=== PATIENT | female | born 1980 | race Hispanic/Latino ===

== ENCOUNTER 2020-04-17 17:27 | Emergency (ER) | payer OTHER, SELFPAY ==
--- NOTE | ~2020-04-17 | CT_ITS ---
EXAMINATION: CT brain wo con DATE: 04/17/2020 22:20 INDICATION: Headache. TECHNIQUE: Computed tomography (CT) of the head was performed without intravenous contrast. The mA wa s adjusted according to patient size. Iterative reconstruction technique was employed. The dose-lengt h product was 605.33 mGy-cm. COMPARISON: Head CT 06/16/2018 FINDINGS: There is no intracranial hemorrhage, acute infarction, or abnormal intracranial mass lesion . The ventricles are normal in size. The orbits are normal. There is mild mucosal thickening in the e thmoid sinuses. The mastoid air cells are normal. IMPRESSION: 1. Normal brain. Reviewed, dictated and finalized at location A. IMPRESSION: 1. Normal brain.
[2020-04-17 18:32] VITALS: BP 131/84; PULSE 64; RESP 20; TEMP 36.4; O2SAT 99
--- NOTE | 2020-04-17 22:27 | ED.HA ---
HPI - Headache General Chief Complaint: Headache Stated Complaint: headache Time Seen by Provider: 04/17/20 21:50 Source: patient and family Mode of arrival: ambulatory Limitations: language barrier History of Present Illness HPI Narrative: 40-year-old female She prefers her family member to interpret She complains of a week history of a headache Feels like a tightness on the top of her head She does not have nausea or vomiting, she does not have visual symptoms, she does not have a fever or neck pain, she does not have any other neurologic symptoms, and she does not have any sinus issues She is tried taking Tylenol, and it works to some extent She takes propranolol for hypertension and is well controlled MD elicited complaint: headache Onset description: gradually Location: diffuse Related Data Home Medications Medication Instructions Recorded Confirmed hydrochlorothiazide 04/17/20 propranolol 04/17/20 Allergies Allergy/AdvReac Type Severity Reaction Status Date / Time No Known Allergies Allergy Verified 04/17/20 18:38 Review of Systems Constitutional: Constitutional: Denies chills and Denies fever(s) Eyes: Eyes: Denies change in vision and Denies photophobia Gastrointestinal: Gastrointestinal: Denies nausea and Denies vomiting Neurologic: Denies vertigo, Denies dizziness, Denies syncope, Reports headache(s) and Denies focal weakness Endocrine: Comments: No weight change PMFSH Social History Social History Gender identity (if verbalized by the patient): Female Sexual Orientation (if Verbalized by the Patient): Straight or Heterosexual Exam Const: General: healthy appearing, no acute distress and well developed Nutritional Appearance: well nourished Orientation/consciousness: patient oriented x3 (alert) and Other orientation findings (Alert) Limitations: no limitations HENMT: Head: normocephalic and atraumatic Ears: external ears normal General nose exam: No nasal discharge present Face and sinus: sinuses nontender and face symmetric Mouth: Yes lip normal, Yes tongue normal and Yes moist mucous membranes Throat: posterior oropharynx normal and other (No exudate, no erythema) Eyes: Conjunctivae: conjunctivae normal Sclera: sclerae normal EOM: EOMs intact bilaterally Other: Sharp discs Neck: Neck: full ROM, no meningeal signs and supple Thyroid: thyroid normal Resp: Effort & Inspection: normal respiratory effort Auscultation: clear to auscultation bilaterally and other (breath sounds equal) Cardio: Rate: regular rate Rhythm: regular rhythm Heart sounds: no gallops and no murmurs GI: GI Palp: No abdominal tenderness Auscultation: other (bowel sounds present) Back/Spine/Pelvis: Thoracic/Lumbar Spine: thoracic and lumbar spine normal to inspection Skin: General skin exam: normal color and no rashes or lesions noted Rashes: no rashes Neuro: General: patient oriented x3 (alert) and no focal motor deficits Cranial nerves: Yes facial symmetry Speech: normal speech Motor exam (neuro): Motor abnormalities not present Extrem: General: normal to inspection and full ROM Psych: Affect: normal affect Course Vital Signs Vital signs: Vital Signs Temperature 36.4 C L 04/17/20 18:32 Pulse Rate 64 04/17/20 18:32 Respiratory Rate 20 04/17/20 18:32 Blood Pressure 131/84 04/17/20 18:32 Pulse Oximetry 99 04/17/20 18:32 Temperature 36.4 C L 04/17/20 18:32 Pulse Rate 64 04/17/20 18:32 Respiratory Rate 20 04/17/20 18:32 Blood Pressure 131/84 04/17/20 18:32 Pulse Oximetry 99 04/17/20 18:32 MDM - Headache Imaging Data Radiologist's impression: ITS Impressions Head CT 04/17/20 22:22 IMPRESSION: 1. Normal brain. Discharge Plan Discharge Clinical Impression: Headache Patient Disposition: Home, Self-Care Condition: Stable Instructions: Antibiotic Form, Acute Headache (ED) Prescriptions: No Action pro
[2020-04-17 23:02] VITALS: BP 129/72; PULSE 50; RESP 16; O2SAT 96
== END 2020-04-17 22:47 | disposition home or self-care (01) ==
PROVIDERS: Emergency Provider Emergency Medicine; PCP Registered Nurse
DX: R51 Headache (principal)
CPT/HCPCS: 70450; 99284

== ENCOUNTER 2022-07-06 17:50 | Emergency (ER) | payer OTHER, SELFPAY ==
--- NOTE | ~2022-07-06 | CT_ITS ---
EXAMINATION: CT abdomen pelvis wo con DATE: 07/06/2022 21:36 INDICATION: R flank pain, concern for kidney stone TECHNIQUE: Computed tomography (CT) of the abdomen and pelvis was performed without intravenous contr ast. Automated exposure control and iterative reconstruction technique were employed. The dose-length product was 833.13 mGy-cm. COMPARISON: None. FINDINGS: Lower thorax: Unremarkable Liver: Normal. Biliary/Gallbladder: Gallbladder is normal. No bile duct dilation. Pancreas: No mass or duct dilation. Fatty infiltration. Spleen: Normal. Adrenals:No mass. Kidneys: 3 mm left inferior pole nonobstructing calculus. No suspicious mass or hydronephrosis GI tract: No small or large bowel dilation. Normal appendix. Diverticulosis without diverticulitis. Mesentery/Peritoneum: No ascites, mass, or free air. Retroperitoneum: No mass. Pelvis: Somewhat tubular cystic structure in the right adnexa. Normal uterus. Normal left ovary.. Soft Tissues: Soft tissues and body wall unremarkable. Bones: No acute osseous finding. IMPRESSION: Possible right hydrosalpinx, consider pelvic ultrasound for further evaluation. Otherwise, no acute a bdominal pelvic process detected. Specifically there is no evidence of obstructive uropathy. Reviewed, dictated and finalized at location K. [employer] IMPRESSION: Possible right hydrosalpinx, consider pelvic ultrasound for further evaluation. Otherwise, no acute abdominal pelvic process detected. Specifically there is n o evidence of obstructive uropathy.
--- NOTE | ~2022-07-06 | US_ITS ---
EXAMINATION: US pelvic complete w TV DATE: 07/06/2022 23:40 INDICATION: Right-sided hydrosalpinx TECHNIQUE: Multiple transabdominal and endovaginal sonographic images of the pelvis were obtained. COMPARISON: CT abdomen pelvis dated 07/06/2022 FINDINGS: The uterus measures 8.2 x 6.4 x 6.6 cm. The endometrial complex measures 14 mm in thickness. There a re few small anechoic nabothian cysts at the cervix, the largest measuring up to 4 mm diameter. The r ight ovary measures 3.7 x 1.8 x 2.3 cm. There is vascular flow on the right ovary on color Doppler wh ich appears to surround to a 1.8 cm centrally hypoechoic likely likely corpus luteum cyst. The left o vary is not visualized on ultrasound images but appears normal on the prior CT. Somewhat serpiginous anechoic tubular structure at the right adnexa measuring up to 1.7 cm diameter which would be consist ent with the provided history of a hydrosalpinx. There is no free fluid in the pelvis. IMPRESSION: 1. Right hydrosalpinx with dilated tube measuring up to 1.7 cm in maximal diameter. 2. 1.8 cm likely corpus luteum cyst in the right ovary. Reviewed, dictated and finalized at location A. HOISTER IMPRESSION: 1. Right hydrosalpinx with dilated tube measuring up to 1.[address] 2. 1.8 cm likely corpus luteum cyst in the right ovary.
[2022-07-06 18:18] VITALS: BP 130/64; PULSE 57; RESP 20; TEMP 37; O2SAT 99
[2022-07-06 18:38] LABS: Appearance Urine Slightly Cloudy (Clear); Bilirubin Urine Negative (Negative); Blood Urine Negative (Negative); Color Urine Yellow (Yellow); Glucose Urine UA Negative (Negative); Ketones Urine Negative (Negative); Leukocyte Esterase Ur Negative LEU/UL (Negative); Nitrate Urine Negative (Negative); Protein Urine Negative (Negative); Specific Grav Ur 1.025 (1.001-1.035)
[2022-07-06 19:06] LABS: Bacteria Urine Trace /hpf; Mucus Urine Rare /lpf; RBC Urine 0-2 /hpf (0-2); Squamous Epithelial Cell Urine Few /hpf (Few); WBC Urine 0-3 /hpf
[2022-07-06 19:14] LABS: Add Urine Microscopic? YES
--- NOTE | 2022-07-06 21:26 | ED.BACK ---
HPI - Back Pain/Injury General Chief Complaint: Back Pain/Injury Stated Complaint: right flank pain x 1 day Time Seen by Provider: 07/06/22 21:10 History of Present Illness HPI Narrative: Patient is a 42-year-old female here for evaluation of right flank pain over the past day. Patient states it is intermittent in nature, sharp and stabbing, and wraps around to the front of her groin. States the pain is severe, unrelieved by Tylenol at home. She denies any dysuria, urgency or frequency, fevers or chills, hematuria, history of kidney stones. No vaginal discharge. Related Data Home Medications Medication Instructions Recorded Confirmed hydrochlorothiazide 12.5 mg capsule 04/17/20 propranolol 40 mg tablet 04/17/20 Allergies Allergy/AdvReac Type Severity Reaction Status Date / Time No Known Allergies Allergy Verified 07/06/22 17:51 Review of Systems Review of Systems: Gen: Denies fevers or chills Eyes: Denies eye pain or visual change ENT: Denies congestion Respiratory: Denies shortness of breath or cough CV: Denies chest pain or palpitations GI: Denies abdominal pain nausea, emesis or diarrhea : denies burning, urgency, frequency or hematuria Musculoskeletal: Reports right flank pain Neuro: Denies numbness, tingling, weakness or focal weakness Skin: Denies rash Except as documented, all other systems reviewed and negative PMFSH Social History Social History (System 01/04/22 @ 14:20 by Nahun Francisco) Gender identity (if verbalized by the patient): Female Sexual Orientation (if Verbalized by the Patient): Straight or Heterosexual Exam Narrative: APPEARANCE: Well appearing, no pain in distress, well-nourished. Head: Normocephalic and atraumatic. EYES: PERRLA/EOMI, conjunctivae clear NOSE: No nasal drainage EARS: External ear normal in appearance THROAT: Oropharynx is clear. Mucous membranes are moist. NECK: Supple. No adenopathy, no masses. RESPIRATORY: Airway patent, respirations nonlabored. Clear to auscultation bilaterally, no rales, rhonchi, wheezing. CARDIOVASCULAR: Regular rate and rhythm without murmurs, rubs, or gallops. ABDOMINAL: Normoactive bowel sounds. Soft, nontender, nondistended. No rebound tenderness or guarding. MUSCULOSKELETAL: No CVA tenderness. extremities are warm and well-perfused. Moves all extremities well. No edema. NEURO: Normal speech. No focal neurologic deficits. SKIN: Skin is warm and dry. No rashes. PSYCHIATRIC: Normal affect/mood. Course Vital Signs Vital signs: Vital Signs Temperature 98.6 F 07/06/22 18:18 Pulse Rate 57 L 07/06/22 18:18 Respiratory Rate 20 07/06/22 18:18 Blood Pressure 130/64 07/06/22 18:18 Pulse Oximetry 99 07/06/22 18:18 Oxygen Delivery Room Air 07/06/22 18:18 Temperature 98.6 F 07/06/22 18:18 Pulse Rate 88 07/07/22 01:12 Respiratory Rate 18 07/07/22 01:12 Blood Pressure 130/64 07/06/22 18:18 Pulse Oximetry 98 07/07/22 01:12 Oxygen Delivery Room Air 07/06/22 18:18 MDM - Back Pain/Injury MDM Narrative Medical decision making narrative: 42 yo F here for evaluation of right flank pain over the past day. Patient is nontoxic-appearing and has normal vital signs. She has no CVA tenderness. Work-up in the ED shows no kidney stone on the CT but does show right hydrosalpinx, followed by a pelvic ultrasound that reveals a thickened endometrial complex and continued findings of a right hydrosalpinx. Her basic labs are unremarkable. She was given pain meds in the ED with improvement of her symptoms. Her UA does not show signs of infection. She will be discharged home to follow-up with [employer] for further evaluation of her hydrosalpinx and thickened endometrial complex; hydrosalpinx may explain pain. Denies vaginal discharge/ concern for STI; defer pelvic exam. She was given reasons return to the ED and she voiced understanding. Lab Data 07/06/22 21:56 07/06/22 21:56 Labs: La
[2022-07-06] MEDS: MORPHINE SULFATE (*CRX) 4 MG/ML INJ IV PUSH (21:53)
[2022-07-06 22:05] LABS: Basophils Absolute Auto 0.1 K/mm3 (0.0-0.1); Basophils Percent Auto 0.6 % (0.2-1.2); Eosinophils Absolute Auto 0.2 K/mm3 (0-0.3); Eosinophils Percent Auto 2.1 % (0-4.4); Hematocrit 36.4 % (37.0-47.0); Hemoglobin 12.4 g/dL (12.0-15.0); Immature Granulocyte Absolute 0.05 K/mm3 (0.00-0.031); Immature Granulocyte Percent A 0.5 % (0-0.5); Lymphocytes Absolute Auto 2.42 K/mm3 (0.9-3.2); Lymphocytes Percent Auto 25.1 % (18.3-44.2); Mean Corpuscular HGB Conc 34.1 g/dl (32-36); Mean Corpuscular Hemoglobin 30.7 pg (26-34); Mean Corpuscular Volume 90.1 fl (80-100); Monocytes Absolute Auto 1.1 K/mm3 (0.1-0.6); Monocytes Percent Auto 11.5 % (2.6-8.5); Neutrophils Absolute Auto 5.8 K/mm3 (1.3-6.7); Neutrophils Percent Auto 60.2 % (45.5-73.1); Platelet Count Result 285 k/mm3 (150-375); Red Blood Count 4.04 M/mm3 (4.2-5.4); Red Cell Distribution Width 13.1 % (11.5-14.5); White Blood Count 9.7 K/mm3 (4.5-10.0)
[2022-07-06 22:30] LABS: Alanine Aminotransferase 60 U/L (6-35); Albumin Level 4.3 g/dL (3.5-5.1); Alkaline Phosphatase 74 U/L (38-126); Anion Gap 5 mmol/L (8-16); Aspartate Amino Transferase 44 U/L (14-36); Bilirubin,Total 0.4 mg/dL (0.2-1.3); Blood Urea Nitrogen 13 mg/dL (7-17); Calcium 8.9 mg/dL (8.4-10.2); Carbon Dioxide 29 mmol/L (22-30); Chloride 104 mmol/L (98-107); Estimated CRCL calculation 118 ml/min; Estimated Glomerular Filt Rate > 60; Glucose 95 mg/dL (65-110); Potassium 3.6 mmol/L (3.4-5.0); Sodium 138 mmol/L (137-145)
[2022-07-07 01:12] VITALS: PULSE 88; RESP 18; O2SAT 98
== END 2022-07-07 01:16 | disposition home or self-care (01) ==
PROVIDERS: Emergency Medicine; Physician Assistant; Emergency Provider Emergency Medicine; PCP Registered Nurse
DX: N70.11 Chronic salpingitis (principal); N83.201 Unspecified ovarian cyst, right side
CPT/HCPCS: 36415; 74176; 76830; 76856; 80053; 81001; 81025; 85025; 96374; 99284; J2270

== ENCOUNTER 2023-12-02 16:49 | Emergency (ER) | payer OTHER, SELFPAY ==
[2023-12-02 17:02] VITALS: BP 141/63; PULSE 57; RESP 16; TEMP 36.4; O2SAT 99
[2023-12-02 17:24] VITALS: BP 134/79; PULSE 53; RESP 16; O2SAT 98
--- NOTE | 2023-12-02 17:37 | ED.GENADULT ---
[facility] General Adult General Chief complaint: Headache Stated complaint: headache x3 weeks Time Seen by Provider: 12/02/23 17:13 Source: patient Mode of arrival: ambulatory Limitations: no limitations History of Present Illness [facility] narrative: This is a 43-year-old female with PMH migraine, HTN who presents to the ED with chief complaint headache for the past 2-3 weeks. Patient reports the pain is often on and has been taking Advil on occasion for the pain. Patient reports intermittent dizziness. States pain is not getting worse but not getting necessarily better either. No neck pain or neck stiffness. Denies fevers, chills, vomiting, sudden onset, worse headache of life, positional factors or any specific precipitating factor. Denies numbness, weakness. Related Data Home Medications Medication Instructions Recorded Confirmed hydrochlorothiazide 12.5 mg capsule 04/17/20 propranolol 40 mg tablet 04/17/20 Allergies Allergy/AdvReac Type Severity Reaction Status Date / Time No Known Allergies Allergy Verified 12/02/23 16:54 Review of Systems Review of Systems: All systems as dictated in [facility] Social History Social History (System 01/04/22 @ 14:20 by Nahun Francisco) Gender identity (if verbalized by the patient): Female Sexual Orientation (if Verbalized by the Patient): Straight or Heterosexual Exam Narrative: GENERAL: Well-appearing, well-nourished, and in no acute distress. HEAD: Normocephalic, atraumatic. EYES: PERRLA and EOMI. ENT: Nares clear, no rhinorrhea or epistaxis. Mucous membranes moist. Oropharynx without tonsillar hypertrophy exudate or other lesions. NECK: Supple. No adenopathy or masses. No meningeal signs CHEST: No respiratory distress. Clear to auscultation. No wheezes rales or rhonchi HEART: Regular rate and rhythm. No murmur heard. Normal peripheral pulses. ABDOMEN: Soft, nontender, nondistended, normal active bowel sounds. MSK: Normal range of motion. No edema. SKIN: Warm, dry, no rash. NEURO: Alert and oriented x4. No focal deficits. PSYCH: Normal mood and affect. Course Reevaluation(s) Reevaluation #1: Patient is feeling much her regular cocktail. She feels ready to go home. Date: 12/02/23 Time: 19:07 Vital Signs Vital signs: Vital Signs Temperature 97.5 F L 12/02/23 17:02 Pulse Rate 57 L 12/02/23 17:02 Respiratory Rate 16 12/02/23 17:02 Blood Pressure 141/63 H 12/02/23 17:02 Pulse Oximetry 99 12/02/23 17:02 Temperature 97.5 F L 12/02/23 17:02 Pulse Rate 61 12/02/23 18:52 Respiratory Rate 18 12/02/23 18:52 Blood Pressure 130/63 12/02/23 18:52 Pulse Oximetry 99 12/02/23 18:52 Medical Decision Making MDM Narrative Medical decision making narrative: This is a 43-year-old female who presents to the ED with chief complaint of 2 weeks of intermittent headaches. Vitals are normal. Exam is benign. No red flag signs for headache today. No neurologic deficits. No meningeal signs. Encouraged her to follow up with PCP regarding migraines if she continues to have issues with this. She affirms that she has close follow-up with her PCP Pt will be discharged in stable condition. Return precautions given and supportive measures discussed. Pt is understanding and agreeable with plan for discharge and follow-up with PCP. Vital Signs Vital Signs: Vital Signs Temperature 97.5 F L 12/02/23 17:02 Pulse Rate 57 L 12/02/23 17:02 Respiratory Rate 16 12/02/23 17:02 Blood Pressure 141/63 H 12/02/23 17:02 Pulse Oximetry 99 12/02/23 17:02 Temperature 97.5 F L 12/02/23 17:02 Pulse Rate 61 12/02/23 18:52 Respiratory Rate 18 12/02/23 18:52 Blood Pressure 130/63 12/02/23 18:52 Pulse Oximetry 99 12/02/23 18:52 Discharge Plan Discharge Clinical Impression: Migraine Patient Disposition: Home, Self-Care Condition: Stable Instructions: Antibiotic Form, Migraine Headache (ED) Addition
[2023-12-02] MEDS: SODIUM CHLORIDE 0.9% IV 1,000 ML 999 ML IV CONT (17:48)
[2023-12-02] MEDS: PROCHLORPERAZINE EDISYLATE 10 MG/2 ML VIAL IV PUSH (17:49)
[2023-12-02] MEDS: diphenhydrAMINE HCl INJ 50 MG/ML VIAL 25 MG IV PUSH (17:49)
[2023-12-02] MEDS: KETOROLAC 15 MG/ML VIAL (*BKC) IV PUSH (17:49)
[2023-12-02 18:52] VITALS: BP 130/63; PULSE 61; RESP 18; O2SAT 99
[2023-12-02 19:18] VITALS: BP 123/64; PULSE 61; RESP 16; O2SAT 94
== END 2023-12-02 19:20 | disposition home or self-care (01) ==
PROVIDERS: Emergency Provider Physician Assistant; PCP Registered Nurse
DX: G43.909 Migraine, unspecified, not intractable, without status migrainosus (principal); I10 Essential (primary) hypertension
CPT/HCPCS: 96361; 96374; 96375; 99284; J0780; J1200; J1885; J7030

== ENCOUNTER 2024-03-27 16:36 | Emergency (ER) | payer OTHER, SELFPAY ==
[2024-03-27 16:39] VITALS: BP 156/71; PULSE 66; RESP 18; O2SAT 99
--- NOTE | 2024-03-27 16:51 | ECG_ITS ---
Test Date: 2024-03-27 16:45:04 Measurements Intervals [place] Rate: 63 P: 24 AK: 136 QRS: 31 QRSD: 92 T: 3 QT: 402 QTc: 412 Interpretive Statements SINUS RHYTHM NONSPECIFIC T-WAVE ABNORMALITY BORDERLINE ECG No previous ECG available for comparison Electronically Signed On 03-28-2024 13:13:14 CDT by Rome Braga M.D.
[2024-03-27 17:01] VITALS: TEMP 36.4
--- NOTE | 2024-03-27 17:06 | ED.DIZZY ---
HPI - Dizziness General Chief Complaint: Dizziness Stated Complaint: HEAD PRESSURE Time Seen by Provider: 03/27/24 16:45 History of Present Illness HPI Narrative: [age] old female presenting to the emergency department for evaluation for headache and hypertension. Patient states she does have history of migraines and has had a persistent headache for greater than 1 week. Patient states her typical migraine is pain on her head in this migraine feels like a pressure. Otherwise she states this is similar to her previous headaches. Patient states this headache has been daily mm going on for a week. Patient denies any associated numbness or weakness falls or injuries. Patient states that her blood pressures have been running high but states it is states she does not typically check her blood pressures Related Data Home Medications Medication Instructions Recorded Confirmed hydrochlorothiazide 12.5 mg capsule 04/17/20 propranolol 40 mg tablet 04/17/20 Allergies Allergy/AdvReac Type Severity Reaction Status Date / Time No Known Allergies Allergy Verified 12/02/23 16:54 Review of Systems Review of Systems: All systems reviewed & are unremarkable except as noted in HPI and below PMFSH Social History Social History (System 01/04/22 @ 14:20 by Nahun Francisco) Gender identity (if verbalized by the patient): Female Sexual Orientation (if Verbalized by the Patient): Straight or Heterosexual Exam Narrative: APPEARANCE: Well appearing, no pain, no distress, well-nourished. HEAD: normocephalic, atraumatic. EYES: PERRLA/EOMI, conjunctivae clear. NOSE: Normal no drainage EARS:TMS clear with good light reflex. THROAT: Pharynx clear, no exudate. NECK: Supple. No adenopathy, no masses. RESPIRATORY: Airway patent, respirations nonlabored. Clear to auscultation bilaterally, no rales, rhonchi, wheezing. CARDIOVASCULAR: Regular rate and rhythm without murmurs rubs or gallops. ABDOMINAL: Soft, nontender, nondistended, normal bowel sounds MUSCULOSKELETAL: Moves all extremities. Strength/ROM intact, No edema, No calf tenderness. NEURO: Alert. Cranial nerves II through XII intact. Good gait. Good coordination SKIN: Warm, dry. Normal Color Course Course Emergency Course: Patient reports her headache is resolved and patient was discharged home to have close outpatient follow-up. Vital Signs Vital signs: Vital Signs Pulse Rate 66 03/27/24 16:39 Respiratory Rate 18 03/27/24 16:39 Blood Pressure 156/71 H 03/27/24 16:39 Pulse Oximetry 99 03/27/24 16:39 Oxygen Delivery Room Air 03/27/24 16:39 Temperature 98.5 F 03/27/24 18:43 Pulse Rate 67 03/27/24 18:34 Respiratory Rate 20 03/27/24 18:34 Blood Pressure 125/71 03/27/24 18:34 Pulse Oximetry 97 03/27/24 18:34 Oxygen Delivery Room Air 03/27/24 16:39 MDM - Dizziness MDM Narrative Medical decision making narrative: [age] old female presented emergency department for evaluation for headache and high blood pressure. Patient was only treated for migraine and patient's blood pressure significantly improved. Patient states that her headache is resolved. Patient was encouraged of close follow-up with her primary care physician. Differential Diagnosis Differential diagnosis: Likely benign paroxysmal positional vertigo, vertebral basilar insufficiency, cerebrovascular accident, transient cerebral ischemia and other Lab Data Attestation: I reviewed the patient's lab results. 03/27/24 16:56 03/27/24 16:56 Labs: Lab Results 03/27/24 Range/Units 16:56 WBC 11.2 H (4.5-10.0) K/mm3 RBC 4.15 L (4.2-5.4) M/mm3 Hgb 12.1 (12.0-15.0) g/dL Hct 35.0 L (37.0-47.0) % MCV 84.3 (80-100) fl MCH 29.2 (26-34) pg MCHC 34.6 (32-36) g/dl RDW 13.2 (11.5-14.5) % Plt Count 343 (150-375) k/mm3 MPV 10.2 (7.4-10.4) fl Immature Gran % (Auto) 0.4 (0-0.5) % Neut % (Auto) 68.3 (45.5-73.
[2024-03-27 17:08] LABS: Basophils Absolute Auto 0.1 K/mm3 (0.0-0.1); Basophils Percent Auto 0.8 % (0.2-1.2); Eosinophils Absolute Auto 0.2 K/mm3 (0-0.3); Eosinophils Percent Auto 1.8 % (0-4.4); Hemoglobin 12.1 g/dL (12.0-15.0); Immature Granulocyte Absolute 0.04 K/mm3 (0.00-0.031); Immature Granulocyte Percent A 0.4 % (0-0.5); Lymphocytes Absolute Auto 2.55 K/mm3 (0.9-3.2); Lymphocytes Percent Auto 22.8 % (18.3-44.2); Mean Corpuscular HGB Conc 34.6 g/dl (32-36); Mean Corpuscular Hemoglobin 29.2 pg (26-34); Mean Corpuscular Volume 84.3 fl (80-100); Mean Platelet Volume 10.2 fl (7.4-10.4); Monocytes Absolute Auto 0.7 K/mm3 (0.1-0.6); Monocytes Percent Auto 5.9 % (2.6-8.5); Neutrophils Absolute Auto 7.7 K/mm3 (1.3-6.7); Neutrophils Percent Auto 68.3 % (45.5-73.1); Platelet Count Result 343 k/mm3 (150-375); Red Blood Count 4.15 M/mm3 (4.2-5.4); Red Cell Distribution Width 13.2 % (11.5-14.5); White Blood Count 11.2 K/mm3 (4.5-10.0)
[2024-03-27 17:20] LABS: Alanine Aminotransferase 55 U/L (6-35); Albumin Level 4.2 g/dL (3.5-5.1); Alkaline Phosphatase 114 U/L (38-126); Anion Gap 9 mmol/L (4-12); Aspartate Amino Transferase 63 U/L (14-36); Bilirubin,Total 0.3 mg/dL (0.2-1.3); Blood Urea Nitrogen 15 mg/dL (7-17); Calcium 8.6 mg/dL (8.4-10.2); Carbon Dioxide 30 mmol/L (22-30); Chloride 97 mmol/L (98-107); Estimated Glomerular Filt Rate > 60; Glucose 130 mg/dL (65-110); Potassium 3.7 mmol/L (3.4-5.0); Sodium 136 mmol/L (137-145)
[2024-03-27 17:21] VITALS: BP 130/77; PULSE 67; RESP 19; O2SAT 97
[2024-03-27] MEDS: SODIUM CHLORIDE 0.9% IV 1,000 ML 999 ML IV CONT (17:25)
--- NOTE | 2024-03-27 17:25 | PC.NURSE ---
Pt blood pressure reading 130/77. made aware. Dr. Domenic MATHEWS to d/c medication administration for hydralazine.
[2024-03-27] MEDS: KETOROLAC 15 MG/ML VIAL (*BKC) IV PUSH (17:26)
[2024-03-27] MEDS: diphenhydrAMINE HCl INJ 50 MG/ML VIAL 25 MG IV PUSH (17:26)
[2024-03-27] MEDS: PROCHLORPERAZINE EDISYLATE 10 MG/2 ML VIAL IV PUSH (17:26)
[2024-03-27 18:02] VITALS: BP 126/71; PULSE 74; RESP 19; O2SAT 93
[2024-03-27 18:34] VITALS: BP 125/71; PULSE 67; RESP 20; O2SAT 97
[2024-03-27 18:43] VITALS: TEMP 36.9
== END 2024-03-27 18:44 | disposition home or self-care (01) ==
PROVIDERS: Emergency Provider Emergency Medicine; PCP Registered Nurse
DX: G43.909 Migraine, unspecified, not intractable, without status migrainosus (principal); R94.31 Abnormal electrocardiogram [ECG] [EKG]
CPT/HCPCS: 36415; 80053; 85025; 93005; 96361; 96374; 96375; 99284; J0780; J1200; J1885; J7030

== ENCOUNTER 2025-03-06 09:20 | Emergency (ER) | payer OTHER, SELFPAY ==
--- NOTE | ~2025-03-06 | CT_ITS ---
EXAMINATION: CT brain wo con DATE: 03/06/2025 11:51 INDICATION: Headache. Syncope. TECHNIQUE: Computed tomography (CT) of the head was performed without intravenous contrast. Sagittal and coronal reconstructions were performed. The mA was adjusted according to patient size. Iterative reconstruction technique was employed. The dose-length product was 605.33 mGy-cm. COMPARISON: head CT dated 04/17/20 FINDINGS: Moderate-sized midline parietal scalp hematoma posterior to the vertex. No fracture. No acute intracr anial hemorrhage, acute infarction or abnormal extra axial fluid collection. Ventricles are normal an d symmetric. No mass/mass effect. Mild mucosal thickening the ethmoid sinuses. The orbits and mastoid air cells are normal. IMPRESSION: 1. Posterior scalp hematoma. No fracture or acute intracranial process. Reviewed, dictated and finalized at location A.
--- NOTE | ~2025-03-06 | XR_ITS ---
EXAMINATION: XR chest 2V 03/06/2025 10:40 INDICATION: Syncope PROCEDURE: 2 view chest COMPARISON: No prior studies for comparison. FINDINGS: The lungs are clear. The cardiomediastinal silhouette is within normal limits. There are no pleural effusions. There is no pneumothorax suspected. IMPRESSION: 1: NO ACUTE CARDIOPULMONARY DISEASE. Reviewed, dictated and finalized at location A.
[2025-03-06 09:25] VITALS: BP 138/92; PULSE 52; RESP 19; TEMP 36.6; O2SAT 98
--- NOTE | 2025-03-06 09:33 | ECG_ITS ---
Test Date: 2025-03-06 09:30:38 Measurements Intervals [place] Rate: 53 P: 23 ME: 135 QRS: 19 QRSD: 90 T: 13 QT: 451 QTc: 425 Interpretive Statements SINUS BRADYCARDIA BORDERLINE ECG Compared to ECG 03/27/2024 16:45:04 HEART RATE HAS DECREASED Electronically Signed On 03-06-2025 10:07:03 CDT by Bill Puga D.O.
[2025-03-06 09:48] LABS: Hematocrit 35.3 % (37.0-47.0); Hemoglobin 11.4 g/dL (12.0-15.0); Immature Granulocyte Percent A 0.8 % (0-0.5); Lymphocytes Absolute Auto 2.26 K/mm3 (0.9-3.2); Mean Corpuscular HGB Conc 32.3 g/dl (32-36); Mean Corpuscular Hemoglobin 27.0 pg (26-34); Mean Corpuscular Volume 83.6 fl (80-100); Nucleated Red Blood Cells Absolute Auto 0.000 K/mm3 (0.0-0.012); Nucleated Red Blood Cells Perc 0.0 % (0.0-0.2); Platelet Count Result 372 k/mm3 (150-375); Red Blood Count 4.22 M/mm3 (4.2-5.4); White Blood Count 10.6 K/mm3 (4.5-10.0)
[2025-03-06 10:13] LABS: Alanine Aminotransferase 23 U/L (6-35); Albumin Level 4.1 g/dL (3.5-5.1); Alkaline Phosphatase 75 U/L (38-126); Anion Gap 7 mmol/L (4-12); Aspartate Amino Transferase 38 U/L (14-36); Bilirubin,Total 0.5 mg/dL (0.2-1.3); Blood Urea Nitrogen 14 mg/dL (7-17); Calcium 9.0 mg/dL (8.4-10.2); Carbon Dioxide 25 mmol/L (22-30); Chloride 100 mmol/L (98-107); Estimated CRCL calculation 102 ml/min; Estimated Glomerular Filt Rate > 60; Glucose 130 mg/dL (65-110); Potassium 3.9 mmol/L (3.4-5.0); Sodium 132 mmol/L (137-145); Total Protein 7.7 g/dL (6.3-8.2)
--- OUTSIDE RECORDS SUMMARY | 2025-03-06 10:32 | XMS_ITS | Clinical Summary ---
Author Organization [facility] Care Team Providers Care Inventory Auditor Name Role Phone Unavailable Primary Care Provider Unavailabl e Social History Tobacco Use Types Packs/Day Years Used Date Smoking Tobacco: Never Assessed Comments Unknown Sex and Gender Information Value Date Recorded Sex Assigned at Not on file Legal Sex Female 1:11 PM CDT Gender Identity Not on file Sexual Orientation Not on file Plan of Treatment Health Maintenance Due Date Last Done Comments Hepatitis C Virus (HCV) Screening 1979 Hepatitis B Immunization (1 of 3 - 19+ 3-dose series) 1998 Pap Smear 2000 Human Papillomavirus (HPV) Immunization (1 - 3-dose SCDM series) 2006 Cervical Cancer Screening (CCS) 2009 HPV/Cotest 2009 SARS-COV-2 Immunization (2023- season) 2024 11/06/2020, 10/10/2020 Cologuard 2024 Colonoscopy 2024 Colorectal Cancer Screening 2024 Immunochemical Fecal Occult Blood 2024 Influenza Immunization (#1) 03/31/202505/01, 05/10/2019, 04/26/2017, Additional history exists Respiratory Syncytial Virus (RSV) Immunization (Adult) (1 - 1-dose 75+ series) 2054 DTaP/Tdap/Td Immunization Discontinued 01/05/2011 TdaP Immunization Completed 01/05/2011 Meningococcal Immunization (ACWY) Aged Out No longer eligible based on patient's age to complete this topic Pneumococcal Immunization Combined Aged Out No longer eligible based on patient's age to complete this topic Rotavirus Immunization Aged Out No lo nger eligible based on patient's age to complete this topic
[2025-03-06 11:07] LABS: Add Urine Microscopic? YES; Appearance Urine Cloudy (Clear); Glucose Urine UA Negative (Negative); Leukocyte Esterase Ur Negative LEU/UL (Negative); Need Manual Microscopic Reviewed; Nitrate Urine Negative (Negative); Specific Grav Ur 1.034 (1.001-1.035)
[2025-03-06] MEDS: SODIUM CHLORIDE 0.9% IV 1,000 ML 999 ML IV CONT (11:19)
--- NOTE | 2025-03-06 12:05 | ED.SYNCOPE ---
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 She began to feel lightheaded and warm and then lost consciousness. She urinated on herself. She woke up on the ground with her co-worker standing around her. Unsure how long she was unconscious for. No history of seizures. Reports she had coffee and toast this morning for breakfast. No symptoms at this time. Related Data Home Medications ?Medication ?Instructions ?Recorded ?Confirmed ?Last Taken ?Type hydrochlorothiazide 12.5 mg capsule 04/17/20 Unknown History propranolol 40 mg tablet 04/17/20 Unknown History Allergies Allergy/AdvReac Type Severity Reaction Status Date / Time No Known Allergies Allergy Verified 12/02/23 16:54 Review of Systems Review of Systems: All systems reviewed & are unremarkable except as noted in HPI and below Constitutional: Constitutional: Reports no additional constitutional complaints Cardiovascular: Cardiovascular: Reports no additional cardiovascular complaints Respiratory: Respiratory: Reports no additional respiratory complaints Gastrointestinal: Gastrointestinal: Reports no additional gastrointestinal complaints Neurologic: Reports system reviewed and no additional complaints, except as documented PMFSH Past Medical History Medical History (Updated 03/06/25 @ 12:12 by Morgan Melendrez MD) Hypertension Surgical History Surgical History (Updated 03/06/25 @ 12:06 by Morgan Melendrez MD) No pertinent past surgical history Social History Social History (System 01/04/22 @ 14:20 by Nahun Francisco) Gender identity (if verbalized by the patient): Female Sexual Orientation (if Verbalized by the Patient): Straight or Heterosexual Exam Narrative: GENERAL: Well-appearing, well-nourished, and in no acute distress. HEAD: Normocephalic, atraumatic. EYES: PERRL and EOMI. ENT: Mucous membranes moist. No tongue biting NECK: Supple. CHEST: Clear to auscultation. No respiratory distress. HEART: Regular rate and rhythm. Normal peripheral pulses. ABDOMEN: Soft, nontender, nondistended. EXTREMITIES: Normal range of motion. No edema. SKIN: Warm, dry, no rash. NEURO: Alert and oriented x3. PSYCH: Normal mood and affect. Course Course Emergency Course: Patient resting comfortably. CMP and CBC unremarkable. Cloudy urine. Suspect patient is a bit dehydrated given trace ketones and discoloration urine. Patient received 1 L IV fluid. No UTI. Chest x-ray without acute process. Normal EKG. CT head without bleed, +hematoma. Vital Signs Vital signs: Vital Signs Temperature 97.9 F 03/06/25 09:25 Pulse Rate 52 L 03/06/25 09:25 Respiratory Rate 19 03/06/25 09:25 Blood Pressure 138/92 H 03/06/25 09:25 Pulse Oximetry 98 03/06/25 09:25 Oxygen Delivery Room Air 03/06/25 09:25 Temperature 97.9 F 03/06/25 09:25 Pulse Rate 52 L 03/06/25 09:25 Respiratory Rate 19 03/06/25 09:25 Blood Pressure 138/92 H 03/06/25 09:25 Pulse Oximetry 98 03/06/25 09:25 Oxygen Delivery Room Air 03/06/25 09:25 MDM - Syncope Lab Data 03/06/25 09:38 03/06/25 09:38 Labs: Lab Results 03/06/25 03/06/25 Range/Units 09:38 10:39 WBC 10.6 H (4.5-10.0) K/mm3 RBC 4.22 (4.2-5.4) M/mm3 Hgb 11.4 L (12.0-15.0) g/dL Hct 35.3 L (37.0-47.0) % MCV 83.6 (80-100) fl MCH 27.0 (26-34) pg MCHC 32.3 (32-36) g/dl RDW 13.4 (11.5-14.5) % Plt Count 372 (150-375) k/mm3 MPV 9.9 (7.4-10.4) fl Immature Gran % (Auto) 0.8 H (0-0.5) % Neut % (Auto) 68.7 (45.5-73.1) % Lymph % (Auto) 21.4 (18.3-44.2) % [place] % (Auto) 6.5 (2.6-8.5) % Eos % (Auto) 1.8 (0-4.4) % Baso % (Auto) 0.8 (0.2-1.2) % Lymph # (Auto) 2.26 (0.9-3.2) K/mm3 [place] # (Auto) 0.7 H (0.1-0.6) K/mm3 Eos # (Auto) 0.2 (0-0.3) K/mm3 Baso # (Auto) 0.1 (0.0-0.1) K/mm3 Abs Immat Gran (auto) 0.08 H (0.00-0.031) K/mm3 Absolute Neuts (auto) 7.3 H (1.3-6.7) K/mm3 Absolute Nucleated RBC 0.000 (0.0-0.012) K/mm3 Nucleated RBC % 0.0 (0.0-0.2) % Sodium 132 L (137-145) mmol/L Potassium 3.9 (3.4-5.0) mmol/L Chloride 100 (98-107) mmol/L Carbon Dioxide 25 (22-30) mmol/L Anion Gap 7 (4-12) mmol/L BUN 14 (7-17) mg/dL Creatinine 0.66 L (0.7-1.0) mg/dL Estim Creat Clear Calc 102 ml/min Estimated GFR > 60 (59 - ) Glucose 130 H (65-110) mg/dL Calcium 9.0 (8.4-10.2) mg/dL Total Bilirubin 0.5 (0.2-1.3) mg/dL AST 38 H (14-36) U/L ALT 23 (6-35) U/L Alkaline Phosphatase 75 (38-126) U/L Total Protein 7.7 (6.3-8.2) g/dL Albumin 4.1 (3.5-5.1) g/dL Urine Color Dark yellow (Yellow) Urine Appearance Cloudy H (Clear) Urine pH 5.5 (5.0-9.0) Ur Specific [place] 1.034 (1.001-1.035) Urine Protein 3+ H (Negative) mg/dL Urine Glucose (UA) Negative (Negative) mg/dL Urine Ketones Trace H (Negative) mg/dL Ur Blood (Man) Negative (Negative) Urine Nitrate Negative (Negative) Urine Bilirubin 1+ H (Negative) Urine Urobilinogen 1.0 (<2.0) mg/dL Add Ur Microanalysis Reviewed Leukocyte Esterase Rfl Negative (Negative) ALLA/UL Urine RBC 6-10 H (0-2) /hpf Urine WBC 0-5 (0-3) /hpf Ur Squamous Epith Cells Many H (Few) /hpf Urine Bacteria Rare /hpf Urine Casts 6-10 Hyaline Casts Present (None) /lpf ECG Data EKG #1: ECG completion date: 03/06/25 ECG completion time: 09:30 EKG Interpretation: bradycardia (53), sinus rhythm, no ST changes, normal QRS and normal QT Discharge Plan Discharge Clinical Impression: Vasovagal syncope, Hematoma of occipital region of scalp Patient Disposition: Home Condition: Stable Instructions: Syncope (ED) Additional Instructions: Please return to the emergency department if you develop severe and persistent chest pain, difficulty breathing, dizziness, leg swelling or if you are coughing up blood as these can be signs of a medical emergency. Please call your doctor for a follow up appointment to determine the need for further testing. Patient Language: [place] Prescriptions: No Action propranolol 40 mg tablet hydrochlorothiazide 12.5 mg capsule Follow-up/Referrals: Olivia,JEANNINE Salter [Primary Care Provider] - 1 Week
[2025-03-06 12:12] VITALS: BP 109/75; PULSE 71; RESP 18; O2SAT 98
[2025-03-06 12:22] VITALS: BP 127/73; PULSE 68; RESP 20; O2SAT 97
== END 2025-03-06 12:23 | disposition home or self-care (01) ==
PROVIDERS: Emergency Provider Emergency Medicine; PCP Registered Nurse
DX: R55 Syncope and collapse (principal); S00.03XA Contusion of scalp, initial encounter; I10 Essential (primary) hypertension; R00.1 Bradycardia, unspecified; W18.39XA Other fall on same level, initial encounter
CPT/HCPCS: 36415; 70450; 71046; 80053; 81001; 85025; 93005; 96360; 99284; J7030

== ENCOUNTER 2025-04-22 10:17 | Observation (INO) | payer OTHER, SELFPAY ==
[2025-04-22] VITALS (8 sets, daily range): BP systolic 138–149; BP diastolic 71–86; PULSE 64–91; RESP 12–18; TEMP 36.4–36.5; O2SAT 98–100; BMI 34.2
--- NOTE | 2025-04-22 | ECHO_ITS ---
Patient Info Name: Radha Meyer Age: 45 years : 1980 Gender: Female Ht: 63 in Wt: 217 lbs BSA: 2.14 m2 HR: 82 bpm BP: 143 / 86 mmHg Heart Rhythm: Sinus Rhythm Technical Quality: Good Exam Date: 04/22/2025 3:57 PM Patient Status: I Admit Date: 04/22/2025 Exam Type: CA echo doppler color flow Complete two-dimensional, color flow and Doppler transthoracic echocardiogram is performed. Staff Referring Physician: Gemma Sullivan Film Cutter: Kimberly Kent Attending Provider: Chemo Hardy Summary 1. Complete two-dimensional, color flow and Doppler transthoracic echocardiogram is performed. 2. Left ventricular systolic function is hyperdynamic, estimated at >70. Intracavitary gradient of 15 mmHg. 3. There is mildly increased left ventricular wall thickness. 4. The left ventricular diastolic function is normal. 5. There is trace mitral valve regurgitation. 6. There is trace tricuspid valve regurgitation. 7. No pulmonary hypertension, estimated pulmonary arterial systolic pressure is 35 mmHg. Left Ventricle Left ventricular chamber dimension is normal. Left ventricular systolic function is hyperdynamic, estimated at >70. Intracavitary gradient of 15 mmHg. There is mildly increased left ventricular wall thickness. Left ventricular septal wall motion is normal. The left ventricular diastolic function is normal. Right Ventricle Right ventricular chamber dimension is normal. Right ventricular systolic function is normal. Left Atria Left atrial chamber dimension is normal. Right Atria Right atrial chamber dimension is normal. Aortic Valve The aortic valve is trileaflet. There is no aortic valve sclerosis. There is no aortic valve stenosis. There is no aortic valve regurgitation. Pulmonic Valve The pulmonic valve is normal. There is no pulmonic valve stenosis. There is no pulmonic regurgitation. Mitral Valve The mitral valve has normal leaflets. There is no mitral valve stenosis. There is trace mitral valve regurgitation. Tricuspid Valve The tricuspid valve leaflets are normal. There is no significant tricuspid valve stenosis. There is trace tricuspid valve regurgitation. No pulmonary hypertension, estimated pulmonary arterial systolic pressure is 35 mmHg. Pericardium/Pleural The pericardium appears normal. There is no pericardial effusion. Inferior Vena Cava Normal inferior vena cava with >50% collapse upon inspiration consistent with normal right atrial pressure, 5 mmHg. Aorta The aortic root size at the sinus of Valsalva is normal. The prox ascending aorta size is normal. Left Ventricular Outflow Tract Name Value Normal LVOT 2D LVOT Diameter 2.0 cm LVOT Doppler LVOT Peak Velocity 137 cm/s LVOT Peak Gradient 8 mmHg LVOT Mean Gradient 4 mmHg LVOT VTI 31 cm LVOT VTI/AV VTI Ratio 0.8 LVOT Stroke Volume 97 ml LVOT CO 6.0 l/min LVOT CI 2.8 l/min/m2 Pulmonic Valve Name Value Normal RVOT Doppler RVOT Peak Velocity 112 cm/s RVOT Peak Gradient 5 mmHg PV Doppler PV Peak Velocity 132 cm/s PV Peak Gradient 7 mmHg Mitral Valve Name Value Normal MV Diastolic Function MV E Peak Velocity 86 cm/s MV A Peak Velocity 66 cm/s MV E/A 1.3 MV Decel Time (PW) 244 ms MV Annular TDI MV E/e' (Septal) 10.4 MV E/e' (Lateral) 8.0 MV E/e' (Average) 9.2 Tricuspid Valve Name Value Normal TV Regurgitation Doppler TR Peak Velocity 274 cm/s TR Peak Gradient 21 mmHg Estimated PAP/RSVP RA Pressure 5 mmHg <=5 PA Systolic Pressure 35 mmHg <36 RV Systolic Pressure 35 mmHg <36 TV Annular TDI TV Lateral Kathleen s' Velocity 18.8 cm/s >=9.5 Aorta Name Value Normal Ascending Aorta Ao Root Diameter (MM) 2.9 cm Ao Root Diam Index (MM) 1.3 cm/m2 Aortic Valve Name Value Normal AV Doppler AV Peak Velocity 216 cm/s AV Peak Gradient 19 mmHg AV Mean Gradient 9 mmHg AV VTI 40 cm AV Area (Cont Eq VTI) 2.4 cm2 >=3.0 AV Area (Cont Eq Erwin) 2.0 cm2 AV DI (Erwin) 0.63 AV Regurgitation 2D LVOT Area 3.2 cm2 Ventricles Name Value Normal LV Dimensions 2D/MM IVS Diastolic Thickness (2D) 0.9 cm 0.6-1.0 LVID Diastole (2D) 5.3 cm 3.8-5.2 LVIW Diastolic Thickness (2D) 0.8 cm 0.6-0.9 LVID Systole (2D) 3.1 cm 2.2-3.5 LVOT Diameter 2.0 cm LV Mass (2D Cubed) 158.27 g 67.00-162.00 LV Mass Index (2D Cubed) 74 g/m2 43-95 Relative Wall Thickness (2D) 0.30 <=0.42 LV Fractional Shortening/Ejection Fraction 2D/MM LV Fractional Shortening (2D) 41 % 27-45 LV EF (2D Teichholz) 72 % LV Diastolic Volume (4C MOD) 72 ml LV EF (4C MOD) 73 % LV Diastolic Volume (2C MOD) 52 ml LV EF (2C MOD) 74 % LV Diastolic Volume (BP MOD) 63 ml 46-106 LV Diastolic Volume Index (BP MOD) 29 ml/m2 29-61 LV Systolic Volume (BP MOD) 17 ml 14-42 LV Systolic Volume Index (BP MOD) 8 ml/m2 8-24 LV EF (BP MOD) 73 % 54-74 LV Diastolic Length (4C) 8.0 cm LV Systolic Length (4C) 6.4 cm LV Stroke Volume (4C MOD) 53 ml Atria Name Value Normal LA Dimensions LA Dimension (MM) 4.7 cm 2.7-3.8 LA Volume (4C A-L) 71 ml LA Volume (BP A-L) 70 ml RA Dimensions RA Area (4C) 17.2 cm2 <=18.0 Report Signatures
--- NOTE | ~2025-04-22 | MR_ITS ---
EXAMINATION: MR brain/brain stem wo con DATE: 04/24/2025 12:24 INDICATION: Syncope. Seizure like activity. TECHNIQUE: Magnetic resonance imaging (MRI) of the brain and brainstem was performed without intravenous contrast. Sequences included sagittal and axial T1-weighted SE, axial diffusion-weighted FS SE, axial T2*-weighted GRE, axial T2-weighted FLAIR Propeller, axial T2-weighted Propeller, coronal T2-weighted FLAIR, and coronal T1-weighted 3D FSPGR. Apparent diffusion coefficient (ADC) maps were created. COMPARISON: None. FINDINGS: There are no areas of restricted diffusion to suggest acute infarction. No intracranial hemorrhage or abnormal intracranial mass lesion. There are couple small foci of nonspecific increased T2-weighted signal intensity in the the left and right frontal lobe white matter white matter which is within normal limits for age. There are no intraparenchymal signal abnormalities seen on the other pulse sequences. The ventricles are symmetric and normal in size. Bilateral hippocampi appear normal and symmetric. There are no walton matter heterotopias or other neuronal migrational abnormalities. There are no abnormal extra-axial fluid collections. Flow voids are seen in the cerebral arteries on the T2-weighted sequences consistent with their expected patency. Mild mucosal thickening in the posterior bilateral ethmoid sinuses. Visualized orbits and soft tissues are unremarkable. IMPRESSION: 1. Normal for age brain with no acute intracranial process or evident etiology for reported seizure like activity. Reviewed, dictated and finalized at location A.
--- NOTE | ~2025-04-22 | XR_ITS ---
EXAMINATION: XR chest 1V portable DATE: 04/22/2025 11:04 INDICATION: Syncope TECHNIQUE: frontal view of the chest was obtained. COMPARISON: Chest radiograph dated 03/06/25 FINDINGS: The lungs are clear with no focal airspace opacities, pulmonary edema, pleural effusion or pneumothorax. The cardiomediastinal silhouette is normal. Visualized bones and soft tissues are unremarkable. IMPRESSION: 1. No acute cardiopulmonary disease. Reviewed, dictated and finalized at location A.
--- NOTE | ~2025-04-22 | US_ITS ---
EXAMINATION: US carotid duplex BI DATE: 04/22/2025 15:38 INDICATION: Syncope. Vertigo. TECHNIQUE: Grayscale, color Doppler, and pulsed Doppler images of the cervical carotid arteries were obtained. The degree of vessel stenosis is placed in one of the following categories: normal, <50%, 50-69%, >=70% but less than near- occlusion, near-occlusion, or total occlusion. Note that percent stenosis relative to normal distal artery lumen diameter is indirectly measured from velocity measurements as described by Fred, et al. Radiology 2003; 229:340-346. COMPARISON: None. FINDINGS: RIGHT: The right common carotid artery (CCA) peak systolic velocity (PSV) is 97 cm/s. The right internal carotid artery (ICA) PSV is 98 cm/s. The right ICA end- diastolic velocity (EDV) is 42 cm/s. The right ICA/CCA PSV ratio is 1.0. Grayscale and color Doppler images demonstrate no evidence stenosis or plaque in the ICA. The external carotid artery (ECA) PSV is 135 cm/s. There is antegrade flow in the right vertebral artery. LEFT: The left CCA PSV is 112 cm/s. The left ICA PSV is 108 cm/s. The left ICA EDV is 40 cm/s. The left ICA/CCA PSV ratio is 1.0. Grayscale and color Doppler images demonstrate no evident stenosis or plaque in the ICA. The ECA PSV is 127 cm/s. There is antegrade flow in the left vertebral artery. IMPRESSION: 1. No evident plaque or stenosis in the right internal carotid artery. 2. No evident plaque or stenosis in the left internal carotid artery. Reviewed, dictated and finalized at location A.
--- NOTE | ~2025-04-22 | CT_ITS ---
EXAMINATION: CT brain wo con DATE: 04/22/2025 13:35 INDICATION: Syncope TECHNIQUE: Computed tomography (CT) of the head was performed without intravenous contrast. The dose-length product was 605.33 mGy-cm. COMPARISON: None FINDINGS: No acute intracranial hemorrhage. No mass effect. No hydrocephalus. Visualized mastoid air cells are clear. No skull fracture identified. Partial opacification of the paranasal sinuses. IMPRESSION: 1. No acute intracranial hemorrhage. No mass effect. Reviewed, dictated and finalized at location Q.
--- NOTE | 2025-04-22 10:30 | ECG_ITS ---
Test Date: 2025-04-22 10:33:48 Measurements Intervals [place] Rate: 84 P: 27 DC: 148 QRS: 5 QRSD: 93 T: -6 QT: 369 QTc: 438 Interpretive Statements SINUS RHYTHM MODERATE VOLTAGE CRITERIA FOR LVH, CONSIDER NORMAL VARIANT [MEETS CRITERIA IN ONE OF: R(aVL), S(V1), R(V5), R(V5/V6)+S(V1)] NONSPECIFIC T-WAVE ABNORMALITY ABNORMAL ECG Compared to ECG 03/06/2025 09:30:38 NO SIGNIFICANT CHANGE Electronically Signed On 04-22-2025 12:36:34 CDT by Rome Braga M.D.
--- NOTE | 2025-04-22 10:33 | ED_ITS ---
HPI - General Adult General Chief complaint: Syncope Stated complaint: syncopal possible seizure Limitations: language barrier History of Present Illness HPI narrative: Radha Meyer is a 45 y/o status speaking female, with PMhx of HTN, who presents to after possible syncopal episode at work. She states that she does remember what happened the last thing she remembers she was working and her coworkers told EMS that she fainted but did not hit her head and they thought she consoles a little bit and she was out for few seconds and when she woke up she was little bit confused and then came to. Patient denies having any symptoms prior to this denies any pain at this time. She states that she had similar episode the beginning of February and was evaluated here for it. She states she did have water and coffee this AM, Denies CP/[place]/Vision changes/ abdominal pain/ nausea/vomiting/ fever/chills Related Data Home Medications ?Medication ?Instructions ?Recorded ?Confirmed ?Last Taken ?Type hydrochlorothiazide 12.5 mg capsule 04/17/20 Unknown History propranolol 40 mg tablet 04/17/20 Unknown History Allergies Allergy/AdvReac Type Severity Reaction Status Date / Time No Known Allergies Allergy Verified 12/02/23 16:54 Review of Systems 2 Review of Systems: All systems reviewed & are unremarkable except as noted in HPI and below PMFSH Past Medical History Medical History Endometriosis Hypertension Surgical History Surgical History No pertinent past surgical history Family History Family History (Updated 04/22/25 @ 15:45 by Karo Moon RN) Mother Hypertension Hypercholesteremia Diabetes mellitus Father Diabetes mellitus Social History Social History Smoking status: Never smoker Alcohol intake: never Substance use: never Lack of Transportation: No Lack of Food: Never True Current Housing: I Have Housing Concerned About Future Housing: No Difficulty Paying Gas/Electric Bills: No Difficulty Paying for Meds: No Currently Unemployed: No Education: Grade School Difficulty w/ Childcare or Family Care: No Gender identity (if verbalized by the patient): Female Sexual Orientation (if Verbalized by the Patient): Straight or Heterosexual Spiritual care concerns: No Exam 2 Narrative: GENERAL: Well-appearing, well-nourished, and in no acute distress. HEAD: Normocephalic, atraumatic. EYES: PERRLA and EOMI. ENT: Nares clear, no rhinorrhea or epistaxis. Mucous membranes moist. Oropharynx without tonsillar hypertrophy exudate or other lesions. Bilateral TMs pearly [place] non bulging NECK: Supple. No adenopathy or masses. No carotid bruits or JVD CHEST: Clear to auscultation. No respiratory distress. No wheezes rales or rhonchi HEART: Regular rate and rhythm. No murmur heard. Normal peripheral pulses. ABDOMEN: Soft, nontender, nondistended, normal active bowel sounds. EXTREMITIES: Normal range of motion. No edema. SKIN: Warm, dry, no rash. NEURO: No focal deficits. Alert and oriented x3. PSYCH: Normal mood and affect. Course Vital Signs Vital signs: Vital Signs Temperature 36.4 C 04/22/25 10:17 Pulse Rate 86 04/22/25 10:17 Respiratory Rate 12 04/22/25 10:17 Blood Pressure 143/82 H 04/22/25 10:17 Pulse Oximetry 100 04/22/25 10:17 Oxygen Delivery Room Air 04/22/25 10:17 Temperature 36.4 C 04/22/25 10:17 Pulse Rate 91 04/22/25 14:33 Respiratory Rate 18 04/22/25 14:33 Blood Pressure 143/86 H 04/22/25 10:48 Pulse Oximetry 98 04/22/25 14:33 Oxygen Delivery Room Air 04/22/25 10:17 Medical Decision Making [facility] Narrative Medical decision making narrative: 45 y/o who arrives with syncope vs seizure while at work today. Her coworkers say she fainted, had some convulsion, was out of it and then came to. Patient denies any symptoms / denies pain Exam is intact Concern for : Syncope / cardiac arrhythmia/ new onset seizures/ anemia/ hypoglycemia/ pulmonary embolism / sepsis Plan to check labs and leaning towards admitting since this is the second ER visit for this syncope in 2 months. Patient's CBCs noted to have a bucket 0.5 slightly lower than last month hematocrit 32.9 no leukocytosis, D-dimer is negative CMP sodium 135 otherwise unremarkable troponin is negative, UA is unremarkable negative. EKG sinus rhythm Discussed case with hospitalist Gemma regarding admission with this being her 2nd syncope and collapse over the past couple months, she has been accepted for med surge admission with telemetry Medical Records Medical records reviewed: Yes I reviewed the external patient's medical records. Vital Signs Vital Signs: Vital Signs Temperature 36.4 C 04/22/25 10:17 Pulse Rate 86 04/22/25 10:17 Respiratory Rate 12 04/22/25 10:17 Blood Pressure 143/82 H 04/22/25 10:17 Pulse Oximetry 100 04/22/25 10:17 Oxygen Delivery Room Air 04/22/25 10:17 Temperature 36.4 C 04/22/25 10:17 Pulse Rate 91 04/22/25 14:33 Respiratory Rate 18 04/22/25 14:33 Blood Pressure 143/86 H 04/22/25 10:48 Pulse Oximetry 98 04/22/25 14:33 Oxygen Delivery Room Air 04/22/25 10:17 vitals reviewed by me Lab Data Lab results reviewed: Yes I reviewed the patient's lab results. 04/22/25 11:15 04/22/25 11:15 Labs: Lab Results 04/22/25 04/22/25 04/22/25 Range/Units 10:42 11:15 12:33 WBC 9.1 (4.5-10.0) K/mm3 RBC 3.97 L (4.2-5.4) M/mm3 Hgb 10.5 L (12.0-15.0) g/dL Hct 32.9 L (37.0-47.0) % MCV 82.9 (80-100) fl MCH 26.4 (26-34) pg MCHC 31.9 L (32-36) g/dl RDW 13.8 (11.5-14.5) % Plt Count 370 (150-375) k/mm3 MPV 9.7 (7.4-10.4) fl Immature Gran % (Auto) 0.7 H (0-0.5) % Neut % (Auto) 76.8 H (45.5-73.1) % Lymph % (Auto) 15.5 L (18.3-44.2) % [place] % (Auto) 5.7 (2.6-8.5) % Eos % (Auto) 0.6 (0-4.4) % Baso % (Auto) 0.7 (0.2-1.2) % Lymph # (Auto) 1.41 (0.9-3.2) K/mm3 [place] # (Auto) 0.5 (0.1-0.6) K/mm3 Eos # (Auto) 0.1 (0-0.3) K/mm3 Baso # (Auto) 0.1 (0.0-0.1) K/mm3 Abs Immat Gran (auto) 0.06 H (0.00-0.031) K/mm3 Absolute Neuts (auto) 7.0 H (1.3-6.7) K/mm3 Absolute Nucleated RBC 0.000 (0.0-0.012) K/mm3 Nucleated RBC % 0.0 (0.0-0.2) % D-Dimer < 0.27 (<0.48) ug/mL Sodium 135 L (137-145) mmol/L Potassium 3.8 (3.4-5.0) mmol/L Chloride 104 (98-107) mmol/L Carbon Dioxide 25 (22-30) mmol/L Anion Gap 6 (4-12) mmol/L BUN 16 (7-17) mg/dL Creatinine 0.64 L (0.7-1.0) mg/dL Estim Creat Clear Calc 105 ml/min Estimated GFR > 60 (59 - ) Glucose 105 (65-110) mg/dL POC Capillary Glucose 109 H (65-105) mg/dl Lactic Acid 1.2 (0.7-2.0) mmol/L Calcium 8.5 (8.4-10.2) mg/dL Magnesium 2.1 (1.6-2.3) mg/dL Total Bilirubin 0.3 (0.2-1.3) mg/dL AST 32 (14-36) U/L ALT 20 (6-35) U/L Alkaline Phosphatase 73 (38-126) U/L Troponin I < 0.012 (0.000-0.034) ng/mL Total Protein 7.7 (6.3-8.2) g/dL Albumin 4.1 (3.5-5.1) g/dL Urine Color Yellow (Yellow) Urine Appearance Clear (Clear) Urine pH 5.5 (5.0-9.0) Ur Specific [place] 1.012 (1.001-1.035) Urine Protein 1+ H (Negative) mg/dL Urine Glucose (UA) Negative (Negative) mg/dL Urine Ketones Negative (Negative) mg/dL Ur Blood (Man) Negative (Negative) Urine Nitrate Negative (Negative) Urine Bilirubin Negative (Negative) Urine Urobilinogen 0.2 (<2.0) mg/dL Leukocyte Esterase Rfl Negative (Negative) ALLA/UL Urine RBC 0-2 (0-2) /hpf Urine WBC 0-5 (0-3) /hpf Ur Squamous Epith Cells Few (Few) /hpf Urine Bacteria None seen /hpf Urine Casts 3-5 POC Urine HCG, Qual (Negative) 04/22/25 Range/Units 12:37 WBC (4.5-10.0) K/mm3 RBC (4.2-5.4) M/mm3 Hgb (12.0-15.0) g/dL Hct (37.0-47.0) % MCV (80-100) fl MCH (26-34) pg MCHC (32-36) g/dl RDW (11.5-14.5) % Plt Count (150-375) k/mm3 MPV (7.4-10.4) fl Immature Gran % (Auto) (0-0.5) % Neut % (Auto) (45.5-73.1) % Lymph % (Auto) (18.3-44.2) % [place] % (Auto) (2.6-8.5) % Eos % (Auto) (0-4.4) % Baso % (Auto) (0.2-1.2) % Lymph # (Auto) (0.9-3.2) K/mm3 [place] # (Auto) (0.1-0.6) K/mm3 Eos # (Auto) (0-0.3) K/mm3 Baso # (Auto) (0.0-0.1) K/mm3 Abs Immat Gran (auto) (0.00-0.031) K/mm3 Absolute Neuts (auto) (1.3-6.7) K/mm3 Absolute Nucleated RBC (0.0-0.012) K/mm3 Nucleated RBC % (0.0-0.2) % D-Dimer (<0.48) ug/mL Sodium (137-145) mmol/L Potassium (3.4-5.0) mmol/L Chloride (98-107) mmol/L Carbon Dioxide (22-30) mmol/L Anion Gap (4-12) mmol/L BUN (7-17) mg/dL Creatinine (0.7-1.0) mg/dL Estim Creat Clear Calc ml/min Estimated GFR (59 - ) Glucose (65-110) mg/dL POC Capillary Glucose (65-105) mg/dl Lactic Acid (0.7-2.0) mmol/L Calcium (8.4-10.2) mg/dL Magnesium (1.6-2.3) mg/dL Total Bilirubin (0.2-1.3) mg/dL AST (14-36) U/L ALT (6-35) U/L Alkaline Phosphatase (38-126) U/L Troponin I (0.000-0.034) ng/mL Total Protein (6.3-8.2) g/dL Albumin (3.5-5.1) g/dL Urine Color (Yellow) Urine Appearance (Clear) Urine pH (5.0-9.0) Ur Specific [place] (1.001-1.035) Urine Protein (Negative) mg/dL Urine Glucose (UA) (Negative) mg/dL Urine Ketones (Negative) mg/dL Ur Blood (Man) (Negative) Urine Nitrate (Negative) Urine Bilirubin (Negative) Urine Urobilinogen (<2.0) mg/dL Leukocyte Esterase Rfl (Negative) ALLA/UL Urine RBC (0-2) /hpf Urine WBC (0-3) /hpf Ur Squamous Epith Cells (Few) /hpf Urine Bacteria /hpf Urine Casts POC Urine HCG, Qual Negative (Negative) Imaging Data Radiologist's impression: Impressions Chest X-Ray 04/22/25 11:05 IMPRESSION: 1. No acute cardiopulmonary disease. Head CT 04/22/25 13:41 IMPRESSION: 1. No acute intracranial hemorrhage. No mass effect. ECG Data EKG #1: ECG completion date: 04/22/25 ECG completion time: 10:33 Prior ECG tracings: available for review Interpretation: DX Tech I II III aVR aVL aVF V1 V2 V3 V4 V5 V6 II Rate 84 MI 148 QRSd 93 QT 369 QTc 438 --[place]-- P 27 QRS 5 T -6 SINUS RHYTHM MODERATE VOLTAGE CRITERIA FOR LVH, CONSIDER NORMAL VARIANT [MEETS CRITERIA IN ONE OF: R(aVL), S(V1), R(V5), R(V5/V6)+S(V1)] NONSPECIFIC T-WAVE ABNORMALITY Compared to ECG 03/06/2025 09:30:38 Discharge Plan Discharge Clinical Impression: Syncope Qualifiers: Syncope type: unspecified Qualified Code(s): R55 - Syncope and collapse Patient Disposition: Still a Patient Condition: Stable Time of Disposition: 15:59
--- OUTSIDE RECORDS SUMMARY | 2025-04-22 11:13 | XMS_ITS | Clinical Summary ---
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
[2025-04-22 11:37] LABS: Hematocrit 32.9 % (37.0-47.0); Hemoglobin 10.5 g/dL (12.0-15.0); Immature Granulocyte Percent A 0.7 % (0-0.5); Lymphocytes Absolute Auto 1.41 K/mm3 (0.9-3.2); Mean Corpuscular HGB Conc 31.9 g/dl (32-36); Mean Corpuscular Hemoglobin 26.4 pg (26-34); Mean Corpuscular Volume 82.9 fl (80-100); Nucleated Red Blood Cells Absolute Auto 0.000 K/mm3 (0.0-0.012); Nucleated Red Blood Cells Perc 0.0 % (0.0-0.2); Platelet Count Result 370 k/mm3 (150-375); Red Blood Count 3.97 M/mm3 (4.2-5.4); White Blood Count 9.1 K/mm3 (4.5-10.0)
[2025-04-22 11:51] LABS: Alanine Aminotransferase 20 U/L (6-35); Albumin Level 4.1 g/dL (3.5-5.1); Alkaline Phosphatase 73 U/L (38-126); Anion Gap 6 mmol/L (4-12); Aspartate Amino Transferase 32 U/L (14-36); Bilirubin,Total 0.3 mg/dL (0.2-1.3); Blood Urea Nitrogen 16 mg/dL (7-17); Calcium 8.5 mg/dL (8.4-10.2); Carbon Dioxide 25 mmol/L (22-30); Chloride 104 mmol/L (98-107); Estimated CRCL calculation 105 ml/min; Estimated Glomerular Filt Rate > 60; Glucose 105 mg/dL (65-110); Magnesium 2.1 mg/dL (1.6-2.3); Potassium 3.8 mmol/L (3.4-5.0); Sodium 135 mmol/L (137-145); Total Protein 7.7 g/dL (6.3-8.2)
[2025-04-22 12:01] LABS: Troponin I < 0.012 ng/mL (0.000-0.034)
[2025-04-22 12:37] LABS: BEDSIDEPREGUCG Negative (Negative)
[2025-04-22 12:50] LABS: Add Urine Microscopic? YES; Appearance Urine Clear (Clear); Glucose Urine UA Negative (Negative); Leukocyte Esterase Ur Negative LEU/UL (Negative); Nitrate Urine Negative (Negative); Specific Grav Ur 1.012 (1.001-1.035)
--- NOTE | 2025-04-22 14:11 | PM.IMHP ---
H&P: HPI History of Present Illness Date/Time: 04/22/25 21:00 Chief Complaint: Syncope Narrative: 45 y/o F with PMH of hypertension presents here with syncope. The patient presents here via EMS from her occupation on 04/22 for further evaluation of syncope. HPI obtained through patient report, EMS report and chart review. Per EMS, the patient's coworkers reported that she had a syncopal episode, occurred around 9 am. Last time there was shaking after her syncopal episode. This time she had no abnormal movements of her arms or legs, but was confused after - 15 minutes, couldn't answer simple questions like when her birthday was. They additionally reported to EMS that she was unresponsive for a while. Had urinary incontinence. Patient was A&Ox4 upon their arrival. Patient is reporting she felt some dizziness this morning around 7 am. Additionally, her coworker reports she looked pale and generally unwell all morning prior to passing out. Additionally reports she had water, a piece of toast, and coffee this morning. She denies chest pain, abdominal pain, shortness of breath, headache, vision changes, nausea, vomiting, fever, chills, body aches, urinary symptoms, or palpitations. She does report she locks her legs while she works. Patient's work place is also very hot. She additionally reports she had a similar episode at the beginning of February and was evaluated here at [facility] on 03/06/2025. 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 She began than lightheaded, warm, then had a syncopal episode. She was incontinent of urine. She had eaten toast and had coffee that morning. Workup at that time was benign and her syncope was attributed to a vasovagal response. During evaluation the patient reports she developed dizziness. Precipitated by a crawling sensation in both legs, then develops a feeling like something is lodged in her chest. Dizziness is described as she is spinning vs the room. She has not eaten this afternoon, glucose was checked and 100. Initial VS at presentation: 97.6F, HR 86, RR 12, 143/82, 100% on RA. ED workup showed: no leukocytosis, Hgb 10.5 (11.4 on 03/06/25), d-dimer negative, Na 135, creatinine 0.64 and GFR >60, glucose 109, lactic 1.2, initial troponin negative, and UA showed 1+ protein otherwise unremarkable. HCG negative. CXR showed no acute cardiopulmonary disease. Head CT showed no acute intracranial hemorrhage or mass effect. EKG showed sinus rhythm, moderate voltage criteria for LVH also consider normal variant, nonspecific T-wave abnormality, rate 84. Review of Systems Review of Systems: All systems reviewed & are unremarkable except as noted in HPI and below PMFSH Past Medical History Medical History Endometriosis Hypertension Surgical History Surgical History No pertinent past surgical history Family History Family History (Updated 04/22/25 @ 15:45 by Karo Moon RN) Mother Hypertension Hypercholesteremia Diabetes mellitus Father Diabetes mellitus Social History Social History Smoking status: Never smoker Alcohol intake: never Substance use: never Lack of Transportation: No Lack of Food: Never True Current Housing: I Have Housing Concerned About Future Housing: No Difficulty Paying Gas/Electric Bills: No Difficulty Paying for Meds: No Currently Unemployed: No Education: Grade School Difficulty w/ Childcare or Family Care: No Gender identity (if verbalized by the patient): Female Sexual Orientation (if Verbalized by the Patient): Straight or Heterosexual Spiritual care concerns: No Meds Home Medications and Allergies Home Medications ?Medication ?Instructions ?Recorded ?Confirmed ?Type hydrochlorothiazide 12.5 mg capsule 12.5 mg PO DAILY 04/17/20 04/22/25 History propranolol 160 mg capsule,24 160 mg PO Q24H 04/22/25 04/22/25 History hr,extended release Allergies Allergy/AdvReac Type Severity Reaction Status Date / Time No Known Allergies Allergy Verified 12/02/23 16:54 Vital Signs Vital Signs - 24 hr 04/22/25 10:17 04/22/25 10:45 04/22/25 10:47 Temperature 97.6 F Pulse Rate 86 84 78 Respiratory Rate 12 Blood Pressure 143/82 H 143/77 H 149/82 H Pulse Oximetry 100 Oxygen Delivery Room Air 04/22/25 10:48 Temperature Pulse Rate 82 Respiratory Rate Blood Pressure 143/86 H Pulse Oximetry Oxygen Delivery Exam Const: General: comfortable and no acute distress Other: , female, nontoxic appearance HENMT: Face/Nose/Sinus: Normal nares present Mouth: Yes moist mucous membranes Eyes: General: appearance normal, both eyes and all related structures Sclera: sclerae normal Pupils: Equal, round and reactive pupils present EOM: EOMs intact bilaterally Resp: Effort & Inspection: normal respiratory effort Auscultation: clear to auscultation bilaterally Cardio: Rate: regular rate Rhythm: regular rhythm Other: S1-S2 present without murmur, rub, ectopy GI: Other: Abdomen soft, nondistended, nontender. Normoactive bowel sounds in all quadrants. Skin: General skin exam: normal color and no rashes or lesions noted Wounds: no wounds Neuro: Speech: normal speech Motor exam (neuro): 5/5 motor strength present throughout Sensory Exam: normal sensation Other: A&O x4, no abnormal movements or tremors noted on exam Extrem: General: normal to inspection Psych: Mental Status: mental status grossly normal Affect: normal affect Other: Good insight and judgment, very pleasant H&P: Results Labs Labs: Short CBC 04/22/25 Range/Units 11:15 WBC 9.1 (4.5-10.0) K/mm3 Hgb 10.5 L (12.0-15.0) g/dL Hct 32.9 L (37.0-47.0) % Plt Count 370 (150-375) k/mm3 BMP 04/22/25 11:15 Sodium 135 L Potassium 3.8 Chloride 104 Carbon Dioxide 25 BUN 16 Creatinine 0.64 L Glucose 105 Calcium 8.5 Cardiac Enzymes 04/22/25 Range/Units 11:15 Troponin I < 0.012 (0.000-0.034) ng/mL Liver Function 04/22/25 Range/Units 11:15 Total Bilirubin 0.3 (0.2-1.3) mg/dL AST 32 (14-36) U/L ALT 20 (6-35) U/L Alkaline Phosphatase 73 (38-126) U/L Albumin 4.1 (3.5-5.1) g/dL Urine 04/22/25 Range/Units 12:33 Urine Color Yellow (Yellow) Urine Appearance Clear (Clear) Urine pH 5.5 (5.0-9.0) Ur Specific [place] 1.012 (1.001-1.035) Urine Protein 1+ H (Negative) mg/dL Urine Glucose (UA) Negative (Negative) mg/dL Assessment and Plan Assessment and plan (1) Syncope: Qualifiers: Syncope type: unspecified Qualified Code(s): R55 - Syncope and collapse Code(s): R55 - Syncope and collapse Status: Acute Assessment and Plan: - check echo and carotid ultrasound, see reports - check UDS >> negative - reviewed he ED workup: no significant abnormalities on lab work, hCG negative, UA unremarkable for infection, CXR unremarkable, head CT unremarkable, EKG showed NSR, and orthostatics were negative - neurology consult for possible EEG, given prolonged confusion and abnormal movements of her extremities previously there is concern for seizure - suspect patient will need Holter monitor at discharge, reviewed telemetry during it dizziness episode and patient remained in normal sinus rhythm with no abnormalities - check TSH, monitor electrolytes - IV fluids: LR 100 mL/hr x1L Differential includes seizure as the patient had urinary incontinence, prolonged post-event confusion, and previous abnormal movements of her extremities with the syncope for which Neurology is consulted. No structural abnormalities noted on echo or carotid ultrasound, cannot exclude arrhythmia hand patient is on telemetry. Will likely need Holter monitor at discharge. 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 Less likely TIA/stroke or PE as she has no focal deficits or chest pain/shortness of breath. D-dimer negative. (2) Hypertension: Qualifiers: Hypertension type: primary hypertension Qualified Code(s): I10 - Essential (primary) hypertension Code(s): I10 - Essential (primary) hypertension Status: Chronic Assessment and Plan: - chronic, currently 143/86 and stable - continue home medications: propranolol and HCTZ - monitor Plan Diet: Regular GI Prophylaxis: n/a DVT Prophylaxis: SCDs IV fluids: LR 100 mL/hr x1L Lines/Tubes: Peripheral IV Code Status: Full code Quality VTE Prophylaxis VTE prophylaxis: mechanical ordered Hospitalist [facility] Advance Care Plan I have confirmed that the patient's Advanced Care Plan is present, code status is documented, or surrogate decision maker is listed in patient medical record.: Yes Medication Reconciliation I have utilized all available resources to obtain, update and review the patients current medications (includes all prescriptions, OTC, herbals, cannabis, and nutritional supplements).: Yes
--- NOTE | 2025-04-22 14:55 | ADMGEN ---
This patient, Radha Meyer, was admitted to Medical Room 343-01. Patient/family oriented to hospital policies and general routines including ID bracelet, bed and alarms, visiting hours, pain management, procedures, bathroom and other care routines, personal items, smoking policy, room service/diet, and visiting hours. Information on how to activate the Rapid Response Team has been discussed. Patient/Family are encouraged to report perceived risks to care and to ask questions if they do not understand what they are told or what they should do.
--- OUTSIDE RECORDS SUMMARY | 2025-04-22 15:02 | XMS_ITS | Clinical Summary ---
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
--- NOTE | 2025-04-22 15:07 | PC.NURSE ---
Patient to ultrasound per wheelchair.
[2025-04-22 17:53] LABS: Cannabinoid Screen Urine Negative (Negative)
[2025-04-22] MEDS: LACTATED RINGERS 1,000 ML 100 ML IV CONT (18:05)
[2025-04-22 18:25] LABS: Troponin I < 0.012 ng/mL (0.000-0.034)
[2025-04-23] VITALS (9 sets, daily range): BP systolic 130–134; BP diastolic 71–73; PULSE 60–81; RESP 18–20; TEMP 36.8–37.1; O2SAT 96–99
[2025-04-23 05:29] LABS: Hematocrit 32.8 % (37.0-47.0); Hemoglobin 10.2 g/dL (12.0-15.0); Immature Granulocyte Percent A 0.4 % (0-0.5); Lymphocytes Absolute Auto 2.30 K/mm3 (0.9-3.2); Mean Corpuscular HGB Conc 31.1 g/dl (32-36); Mean Corpuscular Hemoglobin 26.3 pg (26-34); Mean Corpuscular Volume 84.5 fl (80-100); Nucleated Red Blood Cells Absolute Auto 0.000 K/mm3 (0.0-0.012); Nucleated Red Blood Cells Perc 0.0 % (0.0-0.2); Platelet Count Result 376 k/mm3 (150-375); Red Blood Count 3.88 M/mm3 (4.2-5.4); White Blood Count 9.3 K/mm3 (4.5-10.0)
[2025-04-23 05:36] LABS: Hemoglobin A1C 5.6 % (<5.7)
[2025-04-23 05:48] LABS: Alanine Aminotransferase 18 U/L (6-35); Albumin Level 3.8 g/dL (3.5-5.1); Alkaline Phosphatase 61 U/L (38-126); Anion Gap 5 mmol/L (4-12); Aspartate Amino Transferase 39 U/L (14-36); Bilirubin,Total 0.5 mg/dL (0.2-1.3); Blood Urea Nitrogen 12 mg/dL (7-17); Calcium 8.7 mg/dL (8.4-10.2); Carbon Dioxide 27 mmol/L (22-30); Chloride 103 mmol/L (98-107); Estimated CRCL calculation 108 ml/min; Estimated Glomerular Filt Rate > 60; Glucose 96 mg/dL (65-110); Magnesium 2.2 mg/dL (1.6-2.3); Potassium 3.8 mmol/L (3.4-5.0); Sodium 135 mmol/L (137-145); Total Protein 7.1 g/dL (6.3-8.2)
[2025-04-23 06:09] LABS: Thyroid Stimulating Hormone Reflex 0.854 uIU/mL (0.465-4.68)
--- NOTE | 2025-04-23 11:40 | P.CONNEU_ITS ---
Assessment and Plan Assessment and plan (1) Syncope: Qualifiers: Syncope type: unspecified Qualified Code(s): R55 - Syncope and collapse Code(s): R55 - Syncope and collapse Status: Acute Plan Rule out the possibility of seizure patient was advised to have an EEG done and further recommendation accordingly. Consult date: 04/23/25 HPI: Radha Aden is a 45 year old female Admitted to the hospital through the emergency room with history of hypertension and possible syncopal episode at work though she remembered what happened and making statement that she was working and her coworkers told EMS that she fainted. She did not sustain head trauma and reported she was out for few seconds and subsequently bit confused she had water and coffee in the morning and gave no history of any other associated symptomatology. She has been taking propranolol 40mg daily along with hydrochlorothiazide 12.5mg daily and she is not allergic to any medications. She does have ongoing history of 1. Hypertension 2. Endometriosis. There is no history of alcohol intake or substance use. Initial exam in the emergency room nonfocal. Initial vital signs normal, CBC normal, BMP normal, and mast scan normal with negative chest x-ray and negative CT scan of the head without bleed. Subsequently on the floor she has had echocardiogram which reveals mild regurgitations of different valves. Review of Systems 2 Review of Systems: All systems reviewed & are unremarkable except as noted in HPI and below PMFSH Past Medical History Medical History Endometriosis Hypertension Surgical History Surgical History No pertinent past surgical history Family History Family History Mother Hypertension Hypercholesteremia Diabetes mellitus Father Diabetes mellitus Social History Social History Smoking status: Never smoker Alcohol intake: never Substance use: never Lack of Transportation: No Lack of Food: Never True Current Housing: I Have Housing Concerned About Future Housing: No Difficulty Paying Gas/Electric Bills: No Difficulty Paying for Meds: No Currently Unemployed: No Education: Grade School Difficulty w/ Childcare or Family Care: No Gender identity (if verbalized by the patient): Female Sexual Orientation (if Verbalized by the Patient): Straight or Heterosexual Spiritual care concerns: No Meds Home Medications and Allergies Home Medications ?Medication ?Instructions ?Recorded ?Confirmed ?Type hydrochlorothiazide 12.5 mg capsule 12.5 mg PO DAILY 0 04/17/20 04/22/25 History propranolol 160 mg capsule,24 160 mg PO Q24H 04/22/25 04/22/25 History hr,extended release Allergies Allergy/AdvReac Type Severity Reaction Status Date / Time No Known Allergies Allergy Verified 12/02/23 16:54 Vital Signs Vital Signs - 24 hr 04/22/25 14:33 04/22/25 16:28 04/22/25 20:00 Temperature Pulse Rate 91 76 73 Respiratory Rate 18 Blood Pressure Pulse Oximetry 98 Oxygen Delivery 04/22/25 21:38 04/23/25 00:00 04/23/25 04:00 Temperature 36.5 C Pulse Rate 64 60 64 Respiratory Rate 18 Blood Pressure 138/71 Pulse Oximetry 99 Oxygen Delivery 04/23/25 06:00 04/23/25 08:33 Temperature 37.1 C Pulse Rate 60 Respiratory Rate 18 Blood Pressure 134/73 Pulse Oximetry 99 Oxygen Delivery Room Air Exam 2 Narrative: revealed her to be awake alert cooperative in no obvious acute distress, normal speech without evidence of dysphagia or dysarthria, interview was carried out with the trans later assist, head was normocephalic with no bruit neck was supple with no cervical bruits heart was regular with no murmur lungs were clear in a soft neurologically she was awake alert his speech was not dysphasic not dysarthric the cranial examination was normal motor examination revealed no drift with normal tone reflexes symmetrical plantars downgoing there was no evidence of sensory or cerebellar deficit. Results Labs 04/23/25 05:03 04/23/25 05:03 Labs: Short CBC 04/23/25 Range/Units 05:03 WBC 9.3 (4.5-10.0) K/mm3 Hgb 10.2 L (12.0-15.0) g/dL Hct 32.8 L (37.0-47.0) % Plt Count 376 H (150-375) k/mm3 BMP 04/22/25 04/23/25 11:15 05:03 Sodium 135 L 135 L Potassium 3.8 3.8 Chloride 104 103 Carbon Dioxide 25 27 BUN 16 12 Creatinine 0.64 L 0.58 L Glucose 105 96 Calcium 8.5 8.7 Cardiac Enzymes 04/22/25 04/22/25 Range/Units 11:15 17:56 Troponin I < 0.012 < 0.012 (0.000-0.034) ng/mL Liver Function 04/22/25 04/23/25 Range/Units 11:15 05:03 Total Bilirubin 0.3 0.5 (0.2-1.3) mg/dL AST 32 39 H (14-36) U/L ALT 20 18 (6-35) U/L Alkaline Phosphatase 73 61 (38-126) U/L Albumin 4.1 3.8 (3.5-5.1) g/dL Urine 04/22/25 Range/Units 12:33 Urine Color Yellow (Yellow) Urine Appearance Clear (Clear) Urine pH 5.5 (5.0-9.0) Ur Specific [place] 1.012 (1.001-1.035) Urine Protein 1+ H (Negative) mg/dL Urine Glucose (UA) Negative (Negative) mg/dL
--- NOTE | 2025-04-23 15:50 | P.PNIM_ITS ---
Progress Note: A&P Assessment and Plan (1) Syncope: Qualifiers: Syncope type: unspecified Qualified Code(s): R55 - Syncope and collapse Code(s): R55 - Syncope and collapse Status: Acute Assessment and Plan: - check echo and carotid ultrasound, see reports - check UDS >> negative - reviewed he ED workup: no significant abnormalities on lab work, hCG negative, UA unremarkable for infection, CXR unremarkable, head CT unremarkable, EKG showed NSR, and orthostatics were negative - neurology consult for possible EEG, given prolonged confusion and abnormal movements of her extremities previously there is concern for seizure - suspect patient will need Holter monitor at discharge, reviewed telemetry during it dizziness episode and patient remained in normal sinus rhythm with no abnormalities - check TSH, monitor electrolytes - IV fluids: LR 100 mL/hr x1L Differential includes seizure as the patient had urinary incontinence, prolonged post-event confusion, and previous abnormal movements of her extremities with the syncope for which Neurology is consulted. No structural abnormalities noted on echo or carotid ultrasound, cannot exclude arrhythmia hand patient is on telemetry. Will likely need Holter monitor at discharge. 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 Less likely TIA/stroke or PE as she has no focal deficits or chest pain/shortness of breath. D-dimer negative. will add neurology consult to r/o seizures (2) Hypertension: Qualifiers: Hypertension type: primary hypertension Qualified Code(s): I10 - Essential (primary) hypertension Code(s): I10 - Essential (primary) hypertension Status: Chronic Assessment and Plan: - chronic, currently 143/86 and stable - continue home medications: propranolol and HCTZ - monitor Plan Diet: Regular GI Prophylaxis: n/a DVT Prophylaxis: SCDs IV fluids: LR 100 mL/hr x1L Lines/Tubes: Peripheral IV Code Status: Full code Subjective Date/time seen: 04/23/25 15:50 Interval history: 45 y/o F with PMH of hypertension presents here with syncope. The patient presents here via EMS from her occupation on 04/22 for further evaluation of syncope. HPI obtained through patient report, EMS report and chart review. Per EMS, the patient's coworkers reported that she had a syncopal episode, occurred around 9 am. Last time there was shaking after her syncopal e pisode. This time she had no abnormal movements of her arms or legs, but was confused after - 15 minutes, couldn't answer simple questions like when her birthday was. They additionally reported to EMS that she was unresponsive for a while. Had urinary incontinence. Patient was A&Ox4 upon their arrival. Patient is reporting she felt some dizziness this morning around 7 am. Additionally, her coworker reports she looked pale and generally unwell all morning prior to passing out. Additionally reports she had water, a piece of toast, and coffee this morning. She denies chest pain, abdominal pain, shortness of breath, headache, vision changes, nausea, vomiting, fever, chills, body aches, urinary symptoms, or palpitations. She does report she locks her legs while she works. Patient's work place is also very hot. She additionally reports she had a similar episode at the beginning of February and was evaluated here at [facility] on 03/06/2025. 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 She began than lightheaded, warm, then had a syncopal episode. She was incontinent of urine. She had eaten toast and had coffee that morning. Workup at that time was benign and her syncope was attributed to a vasovagal response. During evaluation the patient reports she developed dizziness. Precipitated by a crawling sensation in both legs, then develops a feeling like something is lodged in her chest. Dizziness is described as she is spinning vs the room. She has not eaten this afternoon, glucose was checked and 100. Initial VS at presentation: 97.6F, HR 86, RR 12, 143/82, 100% on RA. ED workup showed: no leukocytosis, Hgb 10.5 (11.4 on 03/06/25), d-dimer negative, Na 135, creatinine 0.64 and GFR >60, glucose 109, lactic 1.2, initial troponin negative, and UA showed 1+ protein otherwise unremarkable. HCG negative. CXR showed no acute cardiopulmonary disease. Head CT showed no acute intracranial hemorrhage or mass effect. EKG showed sinus rhythm, moderate voltage criteria for LVH also consider normal variant, nonspecific T-wave abnormality, rate 84. Neurology consult ordered. pt is calm, pain free Review of Systems Review of Systems: All systems reviewed & are unremarkable except as noted in HPI and below Exam Const: General: comfortable and no acute distress Other: , female, nontoxic appearance HENMT: Face/Nose/Sinus: Normal nares present Mouth: Yes moist mucous membranes Eyes: General: appearance normal, both eyes and all related structures Sclera: sclerae normal Pupils: Equal, round and reactive pupils present E OM: EOMs intact bilaterally Resp: Effort & Inspection: normal respiratory effort Auscultation: clear to auscultation bilaterally Cardio: Rate: regular rate Rhythm: regular rhythm Other: S1-S2 present without murmur, rub, ectopy GI: Other: Abdomen soft, nondistended, nontender. Normoactive bowel sounds in all quadrants. Skin: General skin exam: normal color and no rashes or lesions noted Wounds: no wounds Neuro: Cranial nerves: Yes Equal, round and reactive pupils present Speech: normal speech Motor exam (neuro): 5/5 motor strength present throughout Sensory Exam: normal sensation Other: A&O x4, no abnormal movements or tremors noted on exam Extrem: General: normal to inspection Psych: Mental Status: mental status grossly normal Affect: normal affect Other: Good insight and judgment, very pleasant Objective Data Vital Signs Vital Signs: Vital Signs - 24 hr 04/22/25 16:28 04/22/25 20:00 04/22/25 21:38 Temperature 97.7 F Pulse Rate 76 73 64 Respiratory Rate 18 Blood Pressure 138/71 Pulse Oximetry 99 Oxygen Delivery 04/23/25 00:00 04/23/25 04:00 04/23/25 06:00 Temperature 98.8 F Pulse Rate 60 64 60 Respiratory Rate 18 Blood Pressure 134/73 Pulse Oximetry 99 Oxygen Delivery 04/23/25 08:33 Temperature Pulse Rate Respiratory Rate Blood Pressure Pulse Oximetry Oxygen Delivery Room Air Intake/Output Intake/Output: Intake & Output 04/20/25 04/21/25 04/22/25 04/23/25 23:59 23:59 23:59 23:59 Intake Total 240 550 Output Total 300 550 Balance -60 0 Meds/Results Medications: Active Medications Generic Name Dose Route Start Last Admin Trade Name Freq PRN Reason Stop Dose Admin Acetaminophen 650 mg 04/22/25 14:06 Acetaminophen 325 Mg Tablet PO Q4H PRN Mild Pain (1-3) or Fever Bisacodyl 5 mg 04/22/25 14:06 Bisacodyl 5 Mg Tablet Ec PO DAILY PRN Constipation Hydrochlorothiazide 12.5 mg 04/23/25 09:00 04/23/25 08:38 Hydrochlorothiazide 12.5 Mg Capsule PO 12.5 mg DAILY VIANCA Administration Ibuprofen 400 mg 04/22/25 14:06 Ibuprofen 400 Mg Tablet PO Q6H PRN Mild Pain (1-3) or Fever Miscellaneous Information 0 each 04/22/25 21:20 Propranolol 160mg La Nonform Can Pt Bring From Home? XX 05/22/25 21:19 CLARIFY VIANCA Non-Formulary Medication 160 mg 04/22/25 21:15 Propranolol PO 05/22/25 21:14 Q24H VIANCA Ondansetron HCl 4 mg 04/22/25 14:06 Ondansetron Inj 4 Mg/2 Ml Vial IV PUSH Q6H PRN Nausea And Vomiting Perflutren Lipid Microsphere 0 ml 04/22/25 14:05 Perflutren Lipid Microspheres 1.5 Ml Vial Diluted To 10 Ml Total Volume IV PUSH 04/25/25 14:05 ONCE PRN adequate visualization Protocol Radiology Results: ITS Impressions Chest X-Ray 04/22/25 11:05 IMPRESSION: 1. No acute cardiopulmonary disease. Head CT 04/22/25 13:41 IMPRESSION: 1. No acute intracranial hemorrhage. No mass effect. Carotid Doppler Study 04/22/25 15:49 IMPRESSION: 1. No evident plaque or stenosis in the right internal carotid artery. 2. No evident plaque or stenosis in the left internal carotid artery. Labs Labs: Laboratory Results - last 24 hr 04/22/25 04/22/25 04/22/25 16:42 17:06 17:56 WBC RBC Hgb Hct MCV MCH MCHC RDW Plt Count MPV Immature Gran % (Auto) Neut % (Auto) Lymph % (Auto) [place] % (Auto) Eos % (Auto) Baso % (Auto) Lymph # (Auto) [place] # (Auto) Eos # (Auto) Baso # (Auto) Abs Immat Gran (auto) Absolute Neuts (auto) Absolute Nucleated RBC Nucleated RBC % Sodium Potassium Chloride Carbon Dioxide Anion Gap BUN Creatinine Estim Creat Clear Calc Estimated GFR Glucose POC Capillary Glucose 96 Hemoglobin A1c Calcium Magnesium Total Bilirubin AST ALT Alkaline Phosphatase Troponin I < 0.012 Total Protein Albumin TSH (Reflex) Urine Opiates Screen Negative Urine Methadone Screen Negative Ur Barbiturates Screen Negative Ur Phencyclidine Scrn Negative Ur Amphetamine Screen Negative U Benzodiazepines Scrn Negative Urine Cocaine Screen Negative U Cannabinoids Screen Negative 04/22/25 04/23/25 21:11 05:03 WBC 9.3 RBC 3.88 L Hgb 10.2 L Hct 32.8 L MCV 84.5 MCH 26.3 MCHC 31.1 L RDW 14.2 Plt Count 376 H MPV 10.0 Immature Gran % (Auto) 0.4 Neut % (Auto) 66.4 Lymph % (Auto) 24.7 [place] % (Auto) 7.3 Eos % (Auto) 0.4 Baso % (Auto) 0.8 Lymph # (Auto) 2.30 [place] # (Auto) 0.7 H Eos # (Auto) 0.0 Baso # (Auto) 0.1 Abs Immat Gran (auto) 0.04 H Absolute Neuts (auto) 6.2 Absolute Nucleated RBC 0.000 Nucleated RBC % 0.0 Sodium 135 L Potassium 3.8 Chloride 103 Carbon Dioxide 27 Anion Gap 5 BUN 12 Creatinine 0.58 L Estim Creat Clear Calc 108 Estimated GFR > 60 Glucose 96 POC Capillary Glucose 100 Hemoglobin A1c 5.6 Calcium 8.7 Magnesium 2.2 Total Bilirubin 0.5 AST 39 H ALT 18 Alkaline Phosphatase 61 Troponin I Total Protein 7.1 Albumin 3.8 TSH (Reflex) 0.854 Urine Opiates Screen Urine Methadone Screen Ur Barbiturates Screen Ur Phencyclidine Scrn Ur Amphetamine Screen U Benzodiazepines Scrn Urine Cocaine Screen U Cannabinoids Screen Quality VTE Prophylaxis VTE prophylaxis: mechanical ordered
[2025-04-24] VITALS: PULSE 62
[2025-04-24 04:00] VITALS: PULSE 69
[2025-04-24 06:00] VITALS: BP 130/72; PULSE 69; RESP 18; TEMP 36.9; O2SAT 97
[2025-04-24 08:05] VITALS: PULSE 69
--- NOTE | 2025-04-24 10:55 | PM.IMPN ---
Progress Note: A&P Assessment and Plan (1) Syncope: Qualifiers: Syncope type: unspecified Qualified Code(s): R55 - Syncope and collapse Code(s): R55 - Syncope and collapse Status: Acute Assessment and Plan: - check echo and carotid ultrasound, see reports - check UDS >> negative - reviewed he ED workup: no significant abnormalities on lab work, hCG negative, UA unremarkable for infection, CXR unremarkable, head CT unremarkable, EKG showed NSR, and orthostatics were negative - neurology consult for possible EEG, given prolonged confusion and abnormal movements of her extremities previously there is concern for seizure - suspect patient will need Holter monitor at discharge, reviewed telemetry during it dizziness episode and patient remained in normal sinus rhythm with no abnormalities - check TSH, monitor electrolytes - IV fluids: LR 100 mL/hr x1L Differential includes seizure as the patient had urinary incontinence, prolonged post-event confusion, and previous abnormal movements of her extremities with the syncope for which Neurology is consulted. No structural abnormalities noted on echo or carotid ultrasound, cannot exclude arrhythmia hand patient is on telemetry. Will likely need Holter monitor at discharge. 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 Less likely TIA/stroke or PE as she has no focal deficits or chest pain/shortness of breath. D-dimer negative. will add neurology consult to r/o seizures eeg scheduled for today (2) Hypertension: Qualifiers: Hypertension type: primary hypertension Qualified Code(s): I10 - Essential (primary) hypertension Code(s): I10 - Essential (primary) hypertension Status: Chronic Assessment and Plan: - chronic, currently 143/86 and stable - continue home medications: propranolol and HCTZ - monitor Plan Diet: Regular GI Prophylaxis: n/a DVT Prophylaxis: SCDs IV fluids: LR 100 mL/hr x1L Lines/Tubes: Peripheral IV Code Status: Full code Subjective Date/time seen: 04/24/25 10:55 Interval history: 45 y/o F with PMH of hypertension presents here with syncope. The patient presents here via EMS from her occupation on 04/22 for further evaluation of syncope. HPI obtained through patient report, EMS report and chart review. Per EMS, the patient's coworkers reported that she had a syncopal episode, occurred around 9 am. Last time there was shaking after her syncopal episode. This time she had no abnormal movements of her arms or legs, but was confused after - 15 minutes, couldn't answer simple questions like when her birthday was. They additionally reported to EMS that she was unresponsive for a while. Had urinary incontinence. Patient was A&Ox4 upon their arrival. Patient is reporting she felt some dizziness this morning around 7 am. Additionally, her coworker reports she looked pale and generally unwell all morning prior to passing out. Additionally reports she had water, a piece of toast, and coffee this morning. She denies chest pain, abdominal pain, shortness of breath, headache, vision changes, nausea, vomiting, fever, chills, body aches, urinary symptoms, or palpitations. She does report she locks her legs while she works. Patient's work place is also very hot. She additionally reports she had a similar episode at the beginning of February and was evaluated here at [facility] on 03/06/2025. 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 She began than lightheaded, warm, then had a syncopal episode. She was incontinent of urine. She had eaten toast and had coffee that morning. Workup at that time was benign and her syncope was attributed to a vasovagal response. During evaluation the patient reports she developed dizziness. Precipitated by a crawling sensation in both legs, then develops a feeling like something is lodged in her chest. Dizziness is described as she is spinning vs the room. She has not eaten this afternoon, glucose was checked and 100. Initial VS at presentation: 97.6F, HR 86, RR 12, 143/82, 100% on RA. ED workup showed: no leukocytosis, Hgb 10.5 (11.4 on 03/06/25), d-dimer negative, Na 135, creatinine 0.64 and GFR >60, glucose 109, lactic 1.2, initial troponin negative, and UA showed 1+ protein otherwise unremarkable. HCG negative. CXR showed no acute cardiopulmonary disease. Head CT showed no acute intracranial hemorrhage or mass effect. EKG showed sinus rhythm, moderate voltage criteria for LVH also consider normal variant, nonspecific T-wave abnormality, rate 84. Neurology consult ordered. pt is calm, pain free Review of Systems Review of Systems: All systems reviewed & are unremarkable except as noted in HPI and below Exam Const: General: comfortable and no acute distress Other: , female, nontoxic appearance HENMT: Face/Nose/Sinus: Normal nares present Mouth: Yes moist mucous membranes Eyes: General: appearance normal, both eyes and all related structures Sclera: sclerae normal Pupils: Equal, round and reactive pupils present EOM: EOMs intact bilaterally Resp: Effort & Inspection: normal respiratory effort Auscultation: clear to auscultation bilaterally Cardio: Rate: regular rate Rhythm: regular rhythm Other: S1-S2 present without murmur, rub, ectopy GI: Other: Abdomen soft, nondistended, nontender. Normoactive bowel sounds in all quadrants. Skin: General skin exam: normal color and no rashes or lesions noted Wounds: no wounds Neuro: Cranial nerves: Yes Equal, round and reactive pupils present Speech: normal speech Motor exam (neuro): 5/5 motor strength present throughout Sensory Exam: normal sensation Other: A&O x4, no abnormal movements or tremors noted on exam Extrem: General: normal to inspection Psych: Mental Status: mental status grossly normal Affect: normal affect Other: Good insight and judgment, very pleasant Objective Data Vital Signs Vital Signs: Vital Signs - 24 hr 04/23/25 12:05 04/23/25 14:00 04/23/25 16:05 Temperature 98.3 F Pulse Rate 73 68 74 Respiratory Rate 19 Blood Pressure 130/72 Pulse Oximetry 99 Oxygen Delivery 04/23/25 20:00 04/23/25 20:00 04/23/25 22:00 Temperature 98.2 F Pulse Rate 81 65 Respiratory Rate 20 Blood Pressure 130/71 Pulse Oximetry 96 Oxygen Delivery Room Air 04/24/25 00:00 04/24/25 04:00 04/24/25 06:00 Temperature 98.4 F Pulse Rate 62 69 69 Respiratory Rate 18 Blood Pressure 130/72 Pulse Oximetry 97 Oxygen Delivery Intake/Output Intake/Output: Intake & Output 04/21/25 04/22/25 04/23/25 04/24/25 23:59 23:59 23:59 23:59 Intake Total 240 1030 60 Output Total 300 750 Balance -60 280 60 Meds/Results Medications: Active Medications Generic Name Dose Route Start Last Admin Trade Name Freq PRN Reason Stop Dose Admin Acetaminophen 650 mg 04/22/25 14:06 Acetaminophen 325 Mg Tablet PO Q4H PRN Mild Pain (1-3) or Fever Bisacodyl 5 mg 04/22/25 14:06 Bisacodyl 5 Mg Tablet Ec PO DAILY PRN Constipation Hydrochlorothiazide 12.5 mg 04/23/25 09:00 04/24/25 08:58 Hydrochlorothiazide 12.5 Mg Capsule PO 12.5 mg DAILY VIANCA Administration Ibuprofen 400 mg 04/22/25 14:06 Ibuprofen 400 Mg Tablet PO Q6H PRN Mild Pain (1-3) or Fever Miscellaneous Information 0 each 04/22/25 21:20 Propranolol 160mg La Nonform Can Pt Bring From Home? XX 05/22/25 21:19 CLARIFY VIANCA Non-Formulary Medication 160 mg 04/22/25 21:15 Propranolol PO 05/22/25 21:14 Q24H VIANCA Ondansetron HCl 4 mg 04/22/25 14:06 Ondansetron Inj 4 Mg/2 Ml Vial IV PUSH Q6H PRN Nausea And Vomiting Perflutren Lipid Microsphere 0 ml 04/22/25 14:05 Perflutren Lipid Microspheres 1.5 Ml Vial Diluted To 10 Ml Total Volume IV PUSH 04/25/25 14:05 ONCE PRN adequate visualization Protocol Radiology Results: ITS Impressions Chest X-Ray 04/22/25 11:05 IMPRESSION: 1. No acute cardiopulmonary disease. Head CT 04/22/25 13:41 IMPRESSION: 1. No acute intracranial hemorrhage. No mass effect. Carotid Doppler Study 04/22/25 15:49 IMPRESSION: 1. No evident plaque or stenosis in the right internal carotid artery. 2. No evident plaque or stenosis in the left internal carotid artery. Quality VTE Prophylaxis VTE prophylaxis: mechanical ordered
--- NOTE | 2025-04-24 11:03 | PC.NURSE ---
Discussed MRI with patient. [employer] utilized for all conversation and assessment with patient. [employer] language services utilized. Representatives name is Mamie #[id number]
[2025-04-24 14:00] VITALS: BP 126/66; PULSE 92; RESP 18; TEMP 36.6; O2SAT 95
--- NOTE | 2025-04-24 15:56 | PM.DS ---
DS: Admitting Diagnosis Discharge Date 04/24 Admitting Diagnosis syncope DS: Discharge Diagnosis Discharge Diagnosis (1) Syncope: Qualifiers: Syncope type: unspecified Qualified Code(s): R55 - Syncope and collapse Code(s): R55 - Syncope and collapse Status: Acute (2) Hypertension: Qualifiers: Hypertension type: primary hypertension Qualified Code(s): I10 - Essential (primary) hypertension Code(s): I10 - Essential (primary) hypertension Status: Chronic DS: Summary Hospital Course Hospital Course: 45 y/o F with PMH of hypertension presents here with syncope. The patient presents here via EMS from her occupation on 04/22 for further evaluation of syncope. HPI obtained through patient report, EMS report and chart review. Per EMS, the patient's coworkers reported that she had a syncopal episode, occurred around 9 am. Last time there was shaking after her syncopal episode. This time she had no abnormal movements of her arms or legs, but was confused after - 15 minutes, couldn't answer simple questions like when her birthday was. They additionally reported to EMS that she was unresponsive for a while. Had urinary incontinence. Patient was A&Ox4 upon their arrival. Patient is reporting she felt some dizziness this morning around 7 am. Additionally, her coworker reports she looked pale and generally unwell all morning prior to passing out. Additionally reports she had water, a piece of toast, and coffee this morning. She denies chest pain, abdominal pain, shortness of breath, headache, vision changes, nausea, vomiting, fever, chills, body aches, urinary symptoms, or palpitations. She does report she locks her legs while she works. Patient's work place is also very hot. She additionally reports she had a similar episode at the beginning of February and was evaluated here at [facility] on 03/06/2025. 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 She began than lightheaded, warm, then had a syncopal episode. She was incontinent of urine. She had eaten toast and had coffee that morning. Workup at that time was benign and her syncope was attributed to a vasovagal response. During evaluation the patient reports she developed dizziness. Precipitated by a crawling sensation in both legs, then develops a feeling like something is lodged in her chest. Dizziness is described as she is spinning vs the room. She has not eaten this afternoon, glucose was checked and 100. Initial VS at presentation: 97.6F, HR 86, RR 12, 143/82, 100% on RA. ED workup showed: no leukocytosis, Hgb 10.5 (11.4 on 03/06/25), d-dimer negative, Na 135, creatinine 0.64 and GFR >60, glucose 109, lactic 1.2, initial troponin negative, and UA showed 1+ protein otherwise unremarkable. HCG negative. CXR showed no acute cardiopulmonary disease. Head CT showed no acute intracranial hemorrhage or mass effect. EKG showed sinus rhythm, moderate voltage criteria for LVH also consider normal variant, nonspecific T-wave abnormality, rate 84. Neurology consult ordered. - check echo and carotid ultrasound, see reports - check UDS >> negative - reviewed he ED workup: no significant abnormalities on lab work, hCG negative, UA unremarkable for infection, CXR unremarkable, head CT unremarkable, EKG showed NSR, and orthostatics were negative - neurology consult for possible EEG, given prolonged confusion and abnormal movements of her extremities previously there is concern for seizure - suspect patient will need Holter monitor at discharge, reviewed telemetry during it dizziness episode and patient remained in normal sinus rhythm with no abnormalities - check TSH, monitor electrolytes - IV fluids: LR 100 mL/hr x1L Differential includes seizure as the patient had urinary incontinence, prolonged post-event confusion, and previous abnormal movements of her extremities with the syncope for which Neurology is consulted. No structural abnormalities noted on echo or carotid ultrasound, cannot exclude arrhythmia hand patient is on telemetry. Will likely need Holter monitor at discharge. 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 Less likely TIA/stroke or PE as she has no focal deficits or chest pain/shortness of breath. D-dimer negative. will add neurology consult to r/o seizures eeg scheduled for today MRI unremarkable. OK for discharge per neurology. close f/u with neurology. holter monitor. no driving for 90 days Status at Discharge Functional status at discharge: independent ambulation Overall status at discharge: patient is back to baseline Time Spent with Patient Time attestation: Total time spent providing and/or coordinating discharge services: Time spent: Greater than 30 minutes Exam Const: General: comfortable and no acute distress Other: , female, nontoxic appearance HENMT: Face/Nose/Sinus: Normal nares present Mouth: Yes moist mucous membranes Eyes: General: appearance normal, both eyes and all related structures Sclera: sclerae normal Pupils: Equal, round and reactive pupils present EOM: EOMs intact bilaterally Resp: Effort & Inspection: normal respiratory effort Auscultation: clear to auscultation bilaterally Cardio: Rate: regular rate Rhythm: regular rhythm Other: S1-S2 present without murmur, rub, ectopy GI: Other: Abdomen soft, nondistended, nontender. Normoactive bowel sounds in all quadrants. Skin: General skin exam: normal color and no rashes or lesions noted Wounds: no wounds Neuro: Cranial nerves: Yes Equal, round and reactive pupils present Speech: normal speech Motor exam (neuro): 5/5 motor strength present throughout Sensory Exam: normal sensation Other: A&O x4, no abnormal movements or tremors noted on exam Extrem: General: normal to inspection Psych: Mental Status: mental status grossly normal Affect: normal affect Other: Good insight and judgment, very pleasant Discharge Plan Discharge Attending physician on discharge: Ricardo Briceño Consulting providers: Johnathan Mendoza Discharging Clinician: Roslyn Chan Patient Disposition: Home Activity: may shower, no driving and other - see discharge instructions Diet: heart healthy Discharge Instructions: no driving for 90 days see PCP for Holter monitor instructions f/u with neurology Patient Instructions: Antibiotic Form Patient Language: Armenian Stand Alone Forms: General Discharge Information Follow-up/Referrals: Arcenio Avila MD [Physician, Neurology] - 1 Week Discharge Medications: Continued propranolol 160 mg capsule,extended release 24 hr 160 mg PO Q24H hydrochlorothiazide 12.5 mg capsule 12.5 mg PO DAILY Other Ambulatory Orders: CA cardiac event monitor (Routine) Timeframe: 1 Week Location: Determined by Patient Ordered By: Roslyn Chan Date of admission: 04/22/25 13:47 Primary Care Provider: NicolasaGaetano Admitting Provider: Chemo Hardy Attending physician on admission: Chemo Hardy Condition: Stable Quality VTE Prophylaxis VTE prophylaxis: mechanical ordered Hospitalist MIPS Heart Failure (Exclusion) Patient has history of Heart Transplant or Left Ventricular Assistive Device?: No IF YES, STOP HERE Heart Failure (Qualifier) Patient has current or prior documentation of LVEF less than or equal to 40%, or mod/servere depressed LVSF?: No IF NO, STOP HERE
[2025-04-24 16:05] VITALS: PULSE 74
--- NOTE | 2025-04-24 16:45 | PC.NURSE ---
[facility] language service used for discharge instructions. Stogy Roller was Ankit #[id number].
--- OUTSIDE RECORDS SUMMARY | 2025-04-25 07:08 | XMS_ITS | Clinical Summary ---
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
--- NOTE | 2025-04-28 09:40 | P.NEURO_ITS ---
Neurology EEG Report General Information Date of Study: 04/24/25 TEST Electroencephalogram DIAGNOSIS syncopal episode CONDITION OF RECORDING bedside recording EEG NUMBER [id number] CLINICAL HISTORY the patient is 45 years old who had a syncopal episode at work. No history of prior spells. EEG DESCRIPTION During wakefulness the background activity consists of posterior dominant alpha rhythm at 10-11 hertz with an amplitude of 20-40 microvolts which appears well- formed and reactive to eye opening. Anteriorly low amplitude mixed frequency activity was seen. There is a good anteroposterior gradient. During intermittent drowsiness attenuation of background activity and diffuse theta activity was noted. Focal slow wave activity was noted over the right temporal area which appears to spread widely. Later on spike and wave activity noted over the right mid temporal area spreading to central parietal areas. At times high amplitude paroxysmal delta activity was seen most likely due to brief periods of drowsiness. At times sharp wave activity appeared over right mid temporal area which appears to spread over both hemispheres presenting and rhythmic theta and delta activity however it lasted for 2-3 seconds. At times phase reversing sharp wave transients were also noted over the right central parietal area independently. Patient briefly progressed to stage 2 sleep. Hyperventilation was not performed. Photic stimulation was performed during which no significant abnormal background changes were seen. IMPRESSION This is an abnormal EEG due to presence of a focal sharp waves did at times spikes were seen over right mid temporal as well as central parietal areas. This is a focal interictal abnormality and should be clinically correlated.
== END 2025-04-24 16:55 | disposition home or self-care (01) ==
LOC: ANHED 10:25 → ANH3MED 15:59
PROVIDERS: Student in an Organized Health Care Education/Training Program; Admitting Provider Internal Medicine; Emergency Provider Nurse Practitioner Family; PCP Registered Nurse; Visit Provider General Practice
DX: R55 Syncope and collapse (principal); I10 Essential (primary) hypertension; R94.01 Abnormal electroencephalogram [EEG]; R94.31 Abnormal electrocardiogram [ECG] [EKG]; N80.9 Endometriosis, unspecified; Z82.49 Family history of ischemic heart disease and other diseases of the circulatory system; Z83.3 Family history of diabetes mellitus; Z83.42 Family history of familial hypercholesterolemia
CPT/HCPCS: 36415; 70450; 70551; 71045; 80053; 80307; 81001; 81025; 82948; 83036; 83605; 83735; 84443; 84484; 85025; 85380; 93005; 93306; 93880; 95816; 99285; A9270; G0378; J7120